=== PATIENT | male | born 1980 | race Caucasian/White ===

== ENCOUNTER → 2017-11-21 09:41 | Outpatient (CLI) | payer BC, SELFPAY ==
--- NOTE | 2017-11-21 09:44 | ECHOD_ITS ---
Reason For Study: Afib Procedure This was a 2D Doppler, Color Flow transthoracic echocardiogram. The study was technically difficult. Contrast injection was performed. Exam performed in department. Left Ventricle Normal LV size. Left ventricular systolic function is lower limits of normal. The estimated ejection fraction is 50 %. No evidence for diastolic dysfunction. No regional wall motion abnormalities noted. Right Ventricle Normal RV size. Normal systolic function. Atria The left atrium is mildly enlarged. Normal right atrium. No doppler evidence for ASD. Mitral Valve There is no mitral annular calcification. Normal mitral valve. Trivial mitral valve insufficiency. Tricuspid Valve Normal tricuspid valve. Trivial tricuspid valve insufficiency. Unable to estimate RV systolic pressure/pulmonary artery pressure due to technically difficult study. Aortic Valve Trisinus/trileaflet aortic valve. Mild focal aortic valve thickening. Pulmonic Valve The pulmonic valve is not well visualized. Trivial eccentric pulmonic valve insufficiency. Great Vessels Normal sized aortic root. Pericardium/Pleural No pericardial effusion. Medication 22 gauge I.V. with prn adaptor inserted into right arm. Diluted definity 4ml given slow IV push to enhance endocardial definition. MMode/2D Measurements & Calculations LVIDd: 5.1 cm IVSd: 1.0 cm Ao root diam: 3.1 cm LVIDs: 3.6 cm LVPWd: 1.1 cm LA dimension: 4.3 cm FS: 30.3 % LAV(MOD-sp4): 44.3 ml LA A4 area: 18.0 cm2 Time Measurements MV dec time: 0.24 sec Doppler Measurements & Calculations MV E max devaughn: 97.4 cm/sec Lat Peak E' Devaughn: 14.6 cm/sec Med Peak E' Devaughn: 13.8 cm/sec MV A max devaughn: 71.0 cm/sec E/E' lat: 6.7 E/E' med: 7.1 MV E/A: 1.4 MV V2 max: 117.5 cm/sec MV P1/2t max devaughn: 118.5 cm/sec Ao V2 max: 131.9 cm/sec MV max P.5 mmHg MV P1/2t: 84.1 msec Ao max P.0 mmHg MV V2 mean: 46.3 cm/sec MV dec slope: 412.6 cm/sec2 Ao V2 mean: 73.0 cm/sec MV mean P.2 mmHg MVA(P1/2t): 2.6 cm2 Ao mean P.6 mmHg MV V2 VTI: 42.2 cm Ao V2 VTI: 25.7 cm LV V1 max: 144.2 cm/sec PA V2 max: 104.0 cm/sec LV V1 max P.3 mmHg LV V1 mean P.9 mmHg LV V1 mean: 76.2 cm/sec LV V1 VTI: 31.0 cm Interpretation Summary The study was technically difficult. Contrast injection was performed. Left ventricular systolic function is lower limits of normal. The estimated ejection fraction is 50 %. The left atrium is mildly enlarged. Trivial mitral valve insufficiency. Trivial tricuspid valve insufficiency. Mild focal aortic valve thickening. Trivial eccentric pulmonic valve insufficiency. No evidence for diastolic dysfunction. Ordering Physician: Kris Diana Referring Physician: Kris Diana Performed By: Jose Eduardo Myers RCS
== END ==
PROVIDERS: Visit Provider Internal Medicine Cardiovascular Disease
DX: I48.0 Paroxysmal atrial fibrillation (principal); I42.9 Cardiomyopathy, unspecified
CPT/HCPCS: 93306; Q9957; A4216; C8929

== ENCOUNTER 2018-07-13 12:18 | Emergency (ER) | payer BC, SELFPAY ==
--- NOTE | 2018-07-13 12:30 | EKG12_ITS ---
Test Reason : CP Blood Pressure : / mmHG Vent. Rate : 054 BPM Atrial Rate : 054 BPM P-R Int : 146 ms QRS Dur : 082 ms QT Int : 430 ms P-R-T Axes : 049 055 054 degrees QTc Int : 407 ms Sinus bradycardia Otherwise normal ECG Confirmed by ELISABETH WELLS, VENUS ([id number]), desk editor MUKUND GARDNER ([id number]) on 07/15/2018 12:40:00 PM Referred By: ENDY Confirmed By:VENUS BARBER MD
--- NOTE | 2018-07-13 12:30 | RAD_ITS ---
STUDY: X-RAY CHEST REASON FOR EXAM: Male, 37 years old. Chest pain TECHNIQUE: Single AP portable view of the chest. COMPARISON: 02/19/2017. FINDINGS: The lungs are clear and expanded. There is no demonstrated pleural abnormality. Normal size heart. Normal mediastinum and ryley. Normal visualized pulmonary arteries. Normal visualized aortic arch and descending thoracic aorta. Normal visualized thoracic spine. Normal visualized ribs, clavicles, and shoulders. There is no demonstrated abnormality of the visualized soft tissue structures of the upper abdomen. RAD/Chest 1 View (Portable) IMPRESSION: Normal x-ray examination of the chest. Electronically Signed: Jeff Nair MD at 14:08 EST , Service support ,
[2018-07-13 12:35] VITALS: PULSE 57; RESP 17; TEMP 36.9; O2SAT 95; O2SAT 98; BMI 35.5
[2018-07-13] MEDS: Aspirin 81 MG TAB.CHEW 324 MG PO (12:42)
[2018-07-13 12:48] LABS: Absolute Lymphocyte Count 2.32 X10^3/ul (0.83-4.51); Absolute Neutrophil Count 4.1 X10^3/uL (2.0-7.7); Basophil# 0.02 X10^3/uL; Basophil% 0.3 % (0-1); Eosinophil# 0.22 X10^3/uL; Eosinophils% 3.1 % (0-5); Hematocrit 40.9 % (40-54); Hemoglobin 14.1 g/dl (13.0-16.5); Lymphocyte # 2.32 X10^3/ul (4.0); Lymphocyte % 32.9 % (19-41); Mean Corp Hgb Conc 34.5 g/gl (32-36); Mean Corpuscular Hgb 30.4 pg (27.0-32.0); Mean Corpuscular Volume 88.1 fL (80-94); Mean Platelet Vol. 9.4 fl (6.2-12.0); Monocyte# 0.37 X10^3/uL; Monocyte% 5.2 % (0-10); Neutrophil # 4.12 X10^3/uL (2.7-7.7); Neutrophil % 58.4 % (47-70); Platelet Count 176 K/mm3 (150-450); RBC Distribution Width CV 12.5 % (11.6-14.6); Red Blood Count 4.64 M/mm3 (4.6-6.2); White Blood Count 7.1 K/mm3 (4.4-11.0)
[2018-07-13 12:50] LABS: POSITIVE COUNT NO; POSITIVE DIFFERENTIAL NO; POSITIVE MORPHOLOGY NO
[2018-07-13 13:03] LABS: Anion Gap 7 (5-15); BUN 17 mg/dL (7-18); Calcium,Total 8.6 mg/dL (8.5-10.1); Chloride 110 mmol/L (98-107); EST Glomerular Filtration Rate 90 mL/min (>60); Est Glom Filt Rate - Afr Amer 108 mL/min (>60); Estimated Creatinine Clearance 118.73 ml/min; Glucose 129 mg/dL (74-106); Sodium Level 141 mmol/L (136-145)
--- NOTE | 2018-07-13 13:24 | ED.VISSUMM ---
- ER Visit Summary Date of Service: 07/13/18 Chief Complaint: Chest pain History of Present Illness: The patient is a 37 M who presents with chest pain. He has had this pain intermittently for 4 days. It sharp in the left lower chest area. Nothing makes it better or worse. He has no other associated symptoms. He has a history of atrial fibrillation. He is on metoprolol and lisinopril at home. He took himself off of Eliquis because he could not afford it. However he believes he has been in a sinus rhythm since that time. His last stress test was 2 years ago. Physical Examination: Vital signs reviewed. HEENT exam unremarkable. Heart is regular rate and rhythm without murmurs. Lungs are clear to auscultation. Abdomen is soft and nontender. Extremities reveal no edema. Peripheral pulses are equal. Skin exam normal. Neurologic exam normal. Test Results: EKG is sinus rhythm with no ST changes. Laboratory studies are unremarkable. Chest x-ray per my interpretation is unremarkable Emergency Department Course and Treatment: Patient received aspirin. His pain is been intermittent for 4 days. I do not feel it is cardiac in nature. The patient recently had twins born earlier this week and he has been under a lot of stress. I educated him that he should relax try to destress as much as possible. He will follow-up with his cement side laster Treatment Plan: [] Disposition: Discharge Impression: Chest pain This note was generated with [employer] dictation software. It may contain incorrect words, spelling, and punctuation that were not noted in review of the chart prior to signing ED Disposition - Plan for ED Patient: Chief Complaint: Chest Pain Referrals: Care Physician,No Primary [Primary Care Provider] -
--- NOTE | 2018-07-13 13:26 | ED.DEP ---
ED Disposition - Plan for ED Patient: Disposition: Home or Assisted Living Chief Complaint: Chest Pain Instructions: ED Chest Pain NonCardiac Referrals: Care Physician,No Primary [Primary Care Provider] -
[2018-07-13 13:36] VITALS: BP 126/63; PULSE 57; RESP 17; O2SAT 97
--- NOTE | 2018-07-13 13:36 | ED.RN ---
IV DC'ED, CATHETER INTACT, SMALL GAUZE DRESSING PLACED. DISCHARGE INSTRUCTIONS GIVEN TO AND REVIEWED WITH PATIENT, PATIENT DENIES QUESTIONS OR CONCERNS AND VOICES UNDERSTANDING OF DISCHARGE INSTRUCTIONS. PT AMBULATES OUT OF ROOM WITHOUT DIFFICULTY.
== END 2018-07-13 13:37 | disposition home or self-care (01) ==
PROVIDERS: Emergency Provider Emergency Medicine
DX: R07.9 Chest pain, unspecified (principal); I48.91 Unspecified atrial fibrillation; I10 Essential (primary) hypertension; Z79.899 Other long term (current) drug therapy
CPT/HCPCS: 71045; 80048; 84484; 85025; 93005; 99285; J7030

== ENCOUNTER 2019-08-27 07:36 | Emergency (ER) | payer BC, SELFPAY ==
[2019-04-18 14:20] VITALS: BMI 36.9
[2019-08-27 07:36] VITALS: BP 126/78; PULSE 49; RESP 18; TEMP 36.4; O2SAT 98; BMI 35.8
--- NOTE | 2019-08-27 07:51 | EKG12_ITS ---
Test Reason : CP Blood Pressure : / mmHG Vent. Rate : 052 BPM Atrial Rate : 052 BPM P-R Int : 150 ms QRS Dur : 080 ms QT Int : 456 ms P-R-T Axes : 053 055 050 degrees QTc Int : 424 ms Sinus bradycardia Otherwise normal ECG Confirmed by ROMAN FRYE ([id number]), proposal editor GENTRY MCCOY ([id number]) on 08/29/2019 1:13:36 PM Referred By: KORY Confirmed By:ROMAN FRYE
--- NOTE | 2019-08-27 07:56 | ED.DCSUM_ITS ---
History of Present Illness Chief Complaint: Chest Pain Informant: Patient Onset: Days - 3 Activity at onset: Unknown Timing: Intermittent, Lasts - Seconds or minutes Quality: Dull Location: Left Chest - Without radiation Current Severity: Gone Maximum Severity: Moderate Worsened By: Movement of Arm, Movement of Torso, Breathing. Not Worsened By: Exertion Relieved By: - - palpation Associated Symptoms: Cough - recently, gone now. Negative for: Nausea, Vomiting, Diaphoresis, Dyspnea Narrative: Patient states this past week or so, everyone in his household had influenza. 1 of his kids tested positive for it but the whole house was ill with that including him along with fevers. He was coughing. It has been 4 days or so since he has been feeling better without coughing, but he started having these intermittent chest pains afterwards. They are left-sided, without radiation, and relatively brief. Occasionally they occur at rest. When he has the pains, he feels like it is worse when he moves his arms or torso around and feels bet ter when he pushes on it. He denies any nausea, vomiting, dyspnea, palpitations. No leg pain or swelling. No recent travel, hospitalization, or surgery. No history of DVT or PE. He has a history of paroxysmal atrial fibrillation for which he is on metoprolol and takes baby aspirin daily. He can tell when he goes into atrial fibrillation because it feels like air in my chest and I can feel my heart beating irregularly. He has had none of those symptoms and this is something different. He had a negative cardiac stress test 2 years ago. - Past Medical History (1) HTN (hypertension) Status: Chronic (2) Paroxysmal atrial fibrillation Status: Chronic (3) Cardiomyopathy Status: Resolved Past Medical History - Allergies and Home Meds Allergies/Adverse Reactions: Allergies No Known Allergies Allergy (Verified 04/18/19 14:20) Primary Care Physician: Doctor,Your [STAFF PHYSICIAN] - 1 Week if not improving Lives: With Family Smoking Status: Former smoker - x2 yrs - Family History Paternal Family History: Reports: No pertinent history Review of Systems General: Denies: Chills, Fever, Sweats Eyes: Denies: Visual changes - bilaterally, Diplopia ENT: Denies: Rhinorrhea, Sore throat Cardiovascular: Reports: Chest pain. Denies: Palpitations Respiratory: Denies: Dyspnea, Cough, Sputum, Dyspnea on exertion, Orthopnea Gastrointestinal: Denies: Abdominal pain, Nausea, Vomiting, Diarrhea, Melena, Hematochezia Genitourinary: Denies: Dysuria, Hematuria, Frequency Musculoskeletal: Denies: Back pain, Swelling, Extremity Pain Skin: Denies: Rash, Wounds Neurological: Denies: Headache, Weakness, Numbness Physical Exam Vital Signs/Narrative: Vital Signs Temp Pulse Resp BP Pulse Ox 08/27/19 07:36 97.6 F L 49 L 18 126/78 H 98 Inital Vital Signs reviewed: Yes General: Well nourished, Well developed, No Acute Distress Head: Normocephalic, Atraumatic Eyes: Perrl, EOMI ENT: Moist mucous membranes, No rhinorrhea Neck: Supple, Nontender, No JVD Cardiovascular: Regular rate, Regular rhythm, No murmurs, Normal S1, Normal S2. Negative for: Tachycardia Respiratory: No distress, CTA bilaterally, Chest nontender Abdomen: Soft, Nontender, Nondistended, Normal bowel sounds Back: Nontender, Normal Inspection Extremities: Nontender, No edema. Negative for: Calf Tenderness Skin: Normal color, No rash Neurological: Alert, Oriented x3, Cranial nerves II-XII grossly intact, Normal Strength, Normal Sensation, Normal Gait Psychological: Normal affect, Normal Mood Diagnostic/Tx/Re-eval Chest X-Ray - ED: 2 View, Read by ED Physician, Normal, Heart, Lungs, Mediastinum, Bony Structures, No Acute Disease - Rhythm Strip Rhythm Strip: Sinus Rhythm Rate: 52 Ectopy: None - EKG Initial EKG Interpretation: Sinus Rhythm, No Acute Injury Pattern - Normal EKG Prior: Unchanged - 2017 Treatment: - - Naprosyn Repeat Eval: no recurrence while in ED - Medical Decision Making Patient's EKG and chest x-ray are normal. I do not think this is cardiac in etiology. I do not think this is a pulmonary embolus given the symptoms. I suspect this is intermittent musculoskeletal pain, there is also a possibility it is pleurisy since he recently had a viral illness. I do not think further emergent work-up is indicated at this time. I think prn NSAIDs and outpatient follow-up is reasonable. Patient is comfortable with this overall plan he was given a Naprosyn prior to discharge. ED Disposition - Plan for ED Patient: Disposition: Home or Assisted Living Diagnosis: Non-cardiac chest pain Instructions: CHEST PAIN, NonCardiac Referrals: Doctor,Your [STAFF PHYSICIAN] - 1 Week if not improving Additional Instructions: May try Aleve or ibuprofen as needed for discomfort
[2019-08-27] MEDS: Naproxen 500 MG Tablet PO (07:58)
--- NOTE | 2019-08-27 08:00 | RAD_ITS ---
STUDY: X-RAY CHEST REASON FOR EXAM: Male, 38 years old. LEFT CHEST PAIN; -- H/O AFIB TECHNIQUE: PA and lateral views of the chest. COMPARISON: Comparison is made with prior examination dated July 10, 2018. FINDINGS: EKG electrodes are seen. Hyperinflation. The lungs are clear. There is no demonstrated pleural abnormality. Normal size heart. Normal mediastinum and ryley. Normal visualized pulmonary arteries. Normal visualized aortic arch and descending thoracic aorta. Normal visualized thoracic spine. Normal visualized ribs, clavicles, and shoulders. There is no demonstrated abnormality of the visualized soft tissue structures of the upper abdomen. RAD/Chest PA and Lateral IMPRESSION: Normal x-ray examination of the chest. Electronically Signed: Kwan Pierce, at 8:35 EST , Service support ,
[2019-08-27 08:40] VITALS: BP 112/58; PULSE 58; RESP 18
== END 2019-08-27 08:40 | disposition home or self-care (01) ==
PROVIDERS: Emergency Provider Emergency Medicine
DX: R07.89 Other chest pain (principal); I48.0 Paroxysmal atrial fibrillation; I42.9 Cardiomyopathy, unspecified; I10 Essential (primary) hypertension; Z79.82 Long term (current) use of aspirin; Z87.891 Personal history of nicotine dependence
CPT/HCPCS: 71046; 93005; 99285; A4216

== ENCOUNTER 2019-12-11 10:05 | Emergency (ER) | payer BC, SELFPAY ==
[2019-12-11] VITALS (11 sets, daily range): BP systolic 96–148; BP diastolic 48–84; PULSE 54–128; RESP 15–20; TEMP 36.1; O2SAT 95–99; BMI 35.9
--- NOTE | 2019-12-11 10:23 | EKG12_ITS ---
Test Reason : Blood Pressure : / mmHG Vent. Rate : 144 BPM Atrial Rate : 159 BPM P-R Int : 000 ms QRS Dur : 076 ms QT Int : 294 ms P-R-T Axes : 000 077 037 degrees QTc Int : 455 ms Atrial fibrillation with rapid ventricular response with premature ventricular or aberrantly conducte d complexes Abnormal ECG Confirmed by ROMAN FRYE ([id number]), editor magazine MUKUND GARDNER ([id number]) on 12/15/2019 11:27:18 AM Referred By: Confirmed By:ROMAN FRYE
--- NOTE | 2019-12-11 10:23 | RAD_ITS ---
STUDY: X-RAY CHEST REASON FOR EXAM: Male, 39 years old. Tachycardia since early this morning TECHNIQUE: Single AP portable view of the chest. COMPARISON: Comparison is made with prior examination dated August 27, 2019. FINDINGS: EKG electrodes are seen. Hyperinflation. The lungs are clear. There is no demonstrated pleural abnormality. Normal size heart. Normal mediastinum and ryley. Normal visualized pulmonary arteries. Normal visualized aortic arch and descending thoracic aorta. Normal visualized thoracic spine. Normal visualized ribs, clavicles, and shoulders. There is no demonstrated abnormality of the visualized soft tissue structures of the upper abdomen. RAD/Chest 1 View (Portable) IMPRESSION: Hyperinflation. Electronically Signed: Kwan Pierce, at 11:13 EDT , Service support ,
[2019-12-11] MEDS: 0.9% Normal Saline 1,000 ML 150 ML IV (10:30)
[2019-12-11] MEDS: dilTIAZem 25 MG/5 ML Vial 20 MG IV BOLUS (10:30)
[2019-12-11 10:31] LABS: Absolute Lymphocyte Count 2.72 X10^3/uL (0.83-4.51); Absolute Neutrophil Count 4.8 X10^3/uL (2.0-7.7); Basophil# 0.05 X10^3/uL; Basophil% 0.6 % (0-1); Eosinophil# 0.26 X10^3/uL; Eosinophils% 3.1 % (0-5); Hematocrit 46.2 % (40-54); Hemoglobin 15.6 g/dL (13.0-16.5); Lymphocyte # 2.72 X10^3/ul (4.0); Lymphocyte % 32.2 % (19-41); Mean Corp Hgb Conc 33.8 g/dL (32-36); Mean Corpuscular Hgb 30.5 pg (27.0-32.0); Mean Corpuscular Volume 90.2 fL (80-94); Mean Platelet Vol. 9.3 fl (6.2-12.0); Monocyte# 0.56 X10^3/uL; Monocyte% 6.6 % (0-10); NRBC Flagged by Analyzer 0 % (0-5); Neutrophil # 4.82 X10^3/uL (2.7-7.7); Neutrophil % 57.1 % (47-70); Platelet Count 230 K/mm3 (150-450); RBC Distribution Width CV 12.1 % (11.6-14.6); RBC Distribution Width SD 39.6 fl (35.1-43.9); Red Blood Count 5.12 M/mm3 (4.6-6.2); White Blood Count 8.4 K/mm3 (4.4-11.0)
[2019-12-11 10:47] LABS: Anion Gap 4 (5-15); BUN 21 mg/dL (7-18); BUN/Creat Ratio 18.1 RATIO (10-20); Calcium,Total 9.4 mg/dL (8.5-10.1); Chloride 110 mmol/L (98-107); Creatinine, Serum 1.16 mg/dL (0.70-1.30); EST Glomerular Filtration Rate 75 mL/min (>60); Est Glom Filt Rate - Afr Amer 91 mL/min (>60); Glucose 102 mg/dL (74-106); Potassium 4.4 mmol/L (3.5-5.1); Sodium Level 140 mmol/L (136-145)
[2019-12-11] MEDS: Rivaroxaban 20 MG Tablet PO (12:06)
--- NOTE | 2019-12-11 13:17 | ED.DCSUM_ITS ---
- ER Visit Summary Date of Service: 12/11/19 Chief Complaint: [Palpitations ] History of Present Illness: The patient is a 39 M [presents to the emergency department with palpitations that he noted around 2 AM last night. Patient states his young daughter woke him up crying and he noted that his heart was skipping beats. Patient has history of atrial fibrillation. His last episode was about 3 years ago and he did receive a cardioversion at that time. Patient is currently not anticoagulated. He denies any recent illness. He denies any chest pain. He denies any shortness of breath. Patient not anticoagulated currently. Patient felt normal prior to going to bed. Patient has history of hypertension and A. fib.] Physical Examination: [HEENT-PERRLA, EOMI. Cranial nerves II through XII grossly intact. TMs clear. Mucous membranes moist. No adenopathy. Cardiovascular-irregularly irregular and tachycardic with heart rate in the 140s. No murmurs auscultated. Lungs-clear to auscultation, chest wall stable without crepitus or subcu emphysema Abdomen-normoactive bowel sounds, soft, nontender, no rebound or rigidity, no peritoneal signs. Extremities-intact ?4, normal range of motion, normal pulses, atraumatic] Test Results: [CBC with differential obtained was normal. Chemistries unremarkable. Troponin was less than 0.015. Chest x-ray showed hyperinflation.] EKG obtained showed atrial fibrillation with rapid ventricular response with a rate of 144. Emergency Department Course and Treatment: [IV line established on arrival. Patient placed on clerical clerk.] Treatment Plan: [Patient initially given Cardizem 20 mg IV bolus and this slowed his heart rate down to the upper 90s. Case was discussed with patient's commercial construction project manager Dr. Kris Diana who recommended given patient 1 dose of Xarelto 20 mg p.o. and waiting an hour and then cardioverting the patient. Patient was consented for cardioversion. Patient was given propofol 140 mg IV. Using 200 J he was cardioverted with synchronized shock. Patient back into sinus rhythm. Patient will be treated with Xarelto for 1 month at the request of his commercial construction project manager.] Disposition: [Discharged home in stable condition] Impression: [Atrial fibrillation with rapid ventricular response Cardioversion] This note was generated with ONOFFMIX (?)ation software. It may contain incorrect words, spelling, and punctuation that were not noted in review of the chart prior to signing ED Disposition - Plan for ED Patient: Referrals: Care Physician,No Primary [Primary Care Provider] -
--- NOTE | 2019-12-11 13:21 | ED.DEP ---
ED Disposition - Plan for ED Patient: Instructions: ED AFIB Prescriptions: Rivaroxaban [Xarelto] 20 mg PO DAILY #30 tab Transmission Status: Pending to [facility] Referrals: Care Physician,No Primary [Primary Care Provider] - Kris Diana MD [STAFF PHYSICIAN] - 3-5 Days
[2019-12-11] MEDS: Propofol 200 MG/20 ML Vial IV BOLUS (13:31)
--- OUTSIDE RECORDS SUMMARY | 2020-04-27 18:30 | XMS RPT_ITS | CCD ---
:1980 External Reference #:[id number] Author Organization [facility] Care Team Providers Name Role Phone Cher Cota Unavailable Unavailable Renny Franco Unavailable Unavailable Renny Franco Unavailable Unavailable Hailee Diana MD Unavailable Renny Franco Unavailable Unavailable Yue RN, L Unavailable Raul IQBAL Unavailable Unavailable Allergies Reported Allergen Reaction(s) Severity Date of Onset Location Cat Translations: [ AOF 12-04-2016 - Kacie esparza [facility] CATS] [facility] Medications Medication Name Sig Date Prescriber Location apixaban ELIQUIS 5 MG TABS One 12-13-2016 Brina Clarke RN [facility] tablet by mouth twice Group ([id number]) daily APIXABAN [id number] Kris Diana MD levocetirizine LEVOCETIRIZINE 12-14-2016 [facility] DIHYDROCHLORIDE 5 MG Group ( [id number]) TABS One tablet by mouth daily LEVOCETIRIZINE DIHYDROCHLORIDE [id number] Kris Diana MD lisinopril LISINOPRIL 5 MG TABS 12-13-2016 Mikala Turner [facility] One tablet by mouth RN Group ([id number]) daily LISINOPRIL [id number] Kris Diana MD metoprolol METOPROLOL TARTRATE 25 12-13-2016 [facility] TABS One tablet by RN Group ([id number]) mouth twice daily METOPROLOL TARTRATE [id number] Kris Diana MD nicotine NICODERM CQ 21 MG/24HR 12-13-2016 - [facility] PT24 Apply once a day 12-14-2016 Group ([id number]) for a week NICOTINE [id number] Mikala Turner RN NICODERM CQ 21 MG/24HR PT24 12-13-[address] [facility] ([id number]) Apply once a day for a week NICOTINE [id number] Mikala Turner RN NICODERM CQ 21 MG/24HR PT24 12-13-2016 - 12-14-2016 [facility] ([id number]) Apply once a day for a week NICOTINE [id number] Kris Diana MD NICODERM CQ 21 MG/24HR PT24 12-13-2016 - 12-14-2016 [facility] ([id number]) Apply once a day for a week NICOTINE [id number] Kris Diana MD NICODERM CQ 21 MG/24HR PT24 12-13-[address] [facility] ([id number]) Apply once a day for a week NICOTINE [id number] Mikala Turner RN NICODERM CQ 21 MG/24HR PT24 12-13-[address] [facility] ([id number]) Apply once a day for a week NICOTINE [id number] Mikala Turner RN NICODERM CQ 21 MG/24HR PT24 12-13-2016 - 12-14-2016 [facility] ([id number]) Apply once a day for a week NICOTINE [id number] Kris Diana MD NICODERM CQ 21 MG/24HR PT24 12-13-2016 - 12-14-2016 [facility] ([id number]) Apply once a day for a week NICOTINE [id number] Kris Diana MD NICODERM CQ 21 MG/24HR PT24 12-13-[address] [facility] ([id number]) Apply once a day for a week NICOTINE [id number] Mikala Turner RN NICODERM CQ 21 MG/24HR PT24 12-13-[address] [facility] ([id number]) Apply once a day for a week NICOTINE [id number] Mikala Turner RN NICODERM CQ 21 MG/24HR PT24 12-13-2016 - 12-14-2016 [facility] ([id number]) Apply once a day for a week NICOTINE [id number] Kris Diana MD NICODERM CQ 21 MG/24HR PT24 12-13-[address] [facility] (49663) Apply once a day for a week NICOTINE [id number] Mikala Turner RN NICODERM CQ 21 MG/24HR PT24 12-13-[address] [facility] ([id number]) Apply once a day for a week NICOTINE [id number] Mikala Turner RN NICODERM CQ 21 MG/24HR PT24 12-13-[address] [facility] ([id number]) Apply once a day for a week NICOTINE [id number] Mikala Turner RN NICODERM CQ 21 MG/24HR PT24 12-13-[address] [facility] (14204) Apply once a day for a week NICOTINE [id number] Mikala Turner RN Problems Category Problem Name Status Date Location Cardiac dysrhythmias Atrial fibrillation Active 12-13-2016 - [facility] ([id number]) Other nutritional; Body mass index (BMI) Active 12-14-2016 - [facility] endocrine; and metabolic 35.0-35.9, adult Group (79496) disorders Lynda-; endo-; and Cardiomyopathy Active 12-13-2016 - [facility] myocarditis; Group ([id number]) cardiomyopathy Unclassified Unknown / UNK(Unknown) Active 07-25-2017 - [place] (0000 0) Unclassified Body mass index (BMI) Active 12-14-2016 - [facility] 34.0-34.9, adult Group ([id number]) Results Result Name Value Range Unit Interpretation Flag Date Location progress on 2017-07 PROGRESS HNO ID: [id number]: Zen jacome 07-25-2017 [facility] Rosario: (none)Author Type: Ruby ([id number]) PhysicianType: Progress NotesFiled: 07/25/2017 12:55 PMNote Text:Chief ComplaintPatient presents with:Fever: cough, SOB x 5 daysHPIMac Elbert is a 36 year old male who presents here today for Evaluation ofURI symptoms..patient with 5 day Hx of cough occasionally productive but most the timedry (symptoms started 07/21/2017). Cough worse in Am and before bed. TempMonday was 103.7 and up to 102 yesterday. No ear pain. Slight headachewith prolonged cough. Has post nasal drainage. No sore throat. Nofascial or dental pain. No nausea vomiting or diarrhea. Has felt shortof breath and was wheezing some Sunday night. No rash.Had asthma as a child but no issues in quit some time.Past medical history, appointments, medications, allergies reviewed.Previous Medical HistoryPAST MEDICAL HISTORYDiagnosis Date- Atrial fibrillation (HCC)Previous Surgical HistoryPAST SURGICAL HISTORYProcedure Laterality Date- NONEFamily HistoryFAMILY HISTORYProblem Relation Age of Onset- Kidney Disease Brother congeintal kidney disease dialysysPatient AllergiesALLERGIESAllergen Reactions- Cats SwellingCurrent MedicationsCurrent Outpatient Prescriptions on File Prior to Visit:metoprolol tartrate, short acting, (LOPRESSOR) 25 mg tablet 25 mg twicedaily.lisinopril (ZESTRIL, PRINIVIL) 5 mg tablet 5 mg once daily.ELIQUIS 5 mg tab tab(s) 5 mg twice daily.Levocetirizine 5 mg tablet Take 5 mg by mouth once daily.No current facility-administered medications on file prior to visit.Social HistorySocial History Marital status: Spouse name: Years of education: Number of children:Social History Main Topics Smoking status: Current Every Day Smoker Packs/day: 1.50 Years: 20.00 Smokeless status: Never Used Alcohol use: Yes 30.0 oz/week 20 Cans of Beer (12oz) per week Drug use: NoReview of SymptomsREVIEW OF [facility] HPIEXAM:BP 116/78 (BP Site: Right Arm, BP Position: Sitting, BP Cuff Size: LargeAdult) Pulse 62 Temp 36.9 ?C (98.5 ?F) (Tympanic) Resp 14 Ht 188cm (6' 2) Wt 124.3 kg (274 lb) SpO2 96% BMI 35.18 kg/t1Xuhzaqn Appearance: Well appearing, alert, in no acute distress,well-hydrated, well nourished..Eyes: Anicteric sclera. Pupils are equally round and reactive to light.Extraocular movements are intact. .Ears: External ears normal, canals clear.Nose/Sinuses: Positive findings: mucosa erythematous and swollen, clearrhinorrhea.Oropharynx: Lips, mucosa, and tongue normal, teeth and gums normal,oropharynx with mild cobble stoningNeck: Supple, no adenopathy; thyroid symmetric, normal size, no bruits.Lungs: Lungs clear to auscultation. No wheezing, rhonchi, rales.Heart: RRR without murmur, gallop, or rubs. No ectopy.Abdomen: Normal abdominal exam, Abdomen soft, non-tender. Bowel soundsnormal. No masses, organomegaly.Extremities: No deformities, edema,Health Maintenance ListTETANUS due on 1992ONE PNEUMOVAX PRIOR TO AGE 65 due on 2000LIPID SCREEN due on 2016INFLUENZA(1) due on 03/16/2017Data reviewedA/PASSESSMENT/PLAN:1. Walking pneumonia - ICD9: 486, ICD10: J18.9 (primary diagnosis)- Treat with AZITHROMYCIN 500 MG TABLET daily for 10 days2. Cough - ICD9: 786.2, ICD10: R05- BENZONATATE 100 MG CAPSULE up to TID for coughAdvised on use of tylenol or advil for fever and body aches. Advised toincrease fluids.Work note provided for excuse from work from 07/23/2017 through 07/27/1027with RTW 07/30/2017.Signed Prescriptions Disp Refills benzonatate (TESSALON PERLE) 100 mg capsule 30 capsule 3 Sig: Take 1 capsule by mouth three times daily as needed. azithromycin (ZITHROMAX) 500 mg tablet 10 tablet 0 Sig: Take 1 tablet by mouth once daily for 10 days.F/u MD fly Silver on 2017-07-25 CNOV Office Visit Normal 07-25-2017 [facility] --------KHOI CRAIN [facility] ([id number]) 1980 MDate Time Provider Department07/25/17 11:20 AM ZEN IQBAL Ruby During your visit today, we recorded the following information about you: Temperature Pulse (16108) Respiration Blood pressure 9 8.5 degrees 62/minute 14/minute 116/78 Weight Height 124.3 kg 1.88 Moody Iqbal MD 8 12:55 PM SignedChief ComplaintPatient presents with:Fever: cough, SOB x 5 daysHPIMac Elbert is a [age] year old male who presents here today for Evaluation of URIsymptoms..patient with 5 day Hx of cough occasionally productive but most the time dry(symptoms started 07/21/2017). Cough wor se in Am and before bed. Temp Sundaywas 103.7 and up to 102 yesterday. No ear pain. Slight headache withprolonged cough. Has post nasal drainage. No sore throat. No fascial ordental pain. No na usea vomiting or diarrhea. Has felt short of breath and waswheezing some Sunday night. No rash.H ad asthma as a child but no issues in quit some time.Past medical history, appointments, medic ations, allergies reviewed.Previous Medical HistoryPAST MEDICAL HISTORYDiagnosis Date- Atria l fibrillation (HCC)Previous Surgical HistoryPAST SURGICAL HISTORYProcedure Laterality Date- NONEFamily HistoryFAMILY HISTORYProblem Relation Age of Onset- Kidney Disease Brother conge intal kidney disease dialysysPatient AllergiesALLERGIESAllergen Reactions- Cats SwellingCurr ent MedicationsCurrent Outpatient Prescriptions on File Prior to Visit:metoprolol tartrate, s hort acting, (LOPRESSOR) 25 mg tablet 25 mg twice daily.lisinopril (ZESTRIL, PRINIVIL) 5 mg tab let 5 mg once daily.ELIQUIS 5 mg tab tab(s) 5 mg twice daily.Levocetirizine 5 mg ta blet Take 5 mg by mouth once daily.No current facility-administered medications on file prior to visit.Social HistorySocial History Marital status: Spouse name: Years of education: Lacie mber of children:Social History Main Topics Smoking status: Current Every Day Smoker Packs/day: 1.50 Years: 20.00 Smokeless status: Never Used Alcohol use: Yes 30.0 oz/week 20 Cans of Beer (12o z) per week Drug use: NoReview of SymptomsREVIEW OF [facility] HPIEXAM:BP 116/78 (BP Site: Right Arm, BP Position: Sitting, BP Cuff Size: Large Adult) Pulse 62 Temp 36.9 ?C (98.5 ?F) (Tymp anic) Resp 14 Ht 188 cm (6'2ANDquot;) Wt 124.3 kg (274 lb) SpO2 96% BMI 35.18 kg/h2Igargzb Appearance: Well appearing, alert, in no acute distress, well-hydrated,well nourished ..Eyes: Anicteric sclera. Pupils are equally round and reactive to light.Extraocular movements are intact. .Ears: External ears normal, canals clear.Nose/Sinuses: Positive findings: mucosa er ythematous and swollen, clearrhinorrhea.Oropharynx: Lips, mucosa, and tongue normal, teeth and gum s normal, oropharynxwith mild cobble stoningNeck: Supple, no adenopathy; thyroid symmetri c, normal size, no bruits.Lungs: Lungs clear to auscultation. No wheezing, rhonchi, rales.Hea rt: RRR without murmur, gallop, or rubs. No ectopy.Abdomen: Normal abdominal exam, Abdomen soft , non-tender. Bowel sounds normal.No masses, organomegaly.Extremities: No deformities, edema,Health Maintenance ListTETANUS due on 1992ONE PNEUMOVAX PRIOR TO AGE 65 due on 2000LIPID SCREE N due on 2016INFLUENZA(1) due on 03/16/2017Data reviewedA/PASSESSMENT/PLAN:1 . Walking pneumonia - ICD9: 486, ICD10: J18.9 (primary diagnosis)- Treat with AZITHROMYCIN 500 MG TABLET daily for 10 days2. Cough - ICD9: 786.2, ICD10: R05- BENZONATATE 100 MG CAPSULE u p to TID for coughAdvised on use of tylenol or advil for fever and body aches. Advised toincrease fl uids.Work note provided for excuse from work from 07/23/2017 through 07/27/1027 withRTW 07/30/2017. Signed Prescriptions Disp Refills benzonatate (TESSALON PERLE) 100 mg capsule 30 capsule 3 Sig: Ta ke 1 capsule by mouth three times daily as needed. azithromycin (ZITHROMAX) 500 mg tablet 10 tablet 0 Sig: Take 1 tablet by mouth once daily for 10 days.F/u Celine Silver Provider: SELF [200]Allergies As of Date: 07/25/2017 Noted Allergy ReactionCATS 12/04/2016 7 - SwellingDate Reviewed: 07/25/2017Reviewed by: Zen Iqbal - Fully AssessedReason for Visit: raya [47] Cmt: cough, SOB x 5 daysPrimary Visit Diagnosis:Walking pneumonia [J18.9] Other Visi t Diagnosis:Cough [R05]Order(s):benzonatate (TESSALON PERLE) 100 mg capsuleTake 1 capsule by alanna three times daily as needed.Disp: 30 capsuleRfl: 3 azithromycin (ZITHROMAX) 500 mg tabletTak e 1 tablet by mouth once daily for 10 days.Disp: 10 tabletRfl: 0Prescriptions as of 018 Sig: METOPROLOL TARTRATE 25 MG TAB* 25 mg twice daily. LISINOPRIL 5 MG TABLET 5 mg once daily. E LIQUIS 5 MG TABLET 5 mg twice daily. LEVOCETIRIZINE 5 MG TABLET Take 5 mg by mouth once daily. PATRICK ONATATE 100 MG CAPSULE Take 1 capsule by mouth three* AZITHROMYCIN 500 MG TABLET Take 1 tablet by m out once d*Problem List As Of Date 07/25/2017 Noted Resolved Obesity due to excess calories [E66. 09] INVALID FOR* Acute systolic congestive heart failure (HCC) [*INVALID FOR* More... New o nset atrial fibrillation (HCC) [I48.91] INVALID FOR* Excessive drinking alcohol [F10.10] INVALID FOR *Prescriptions ordered this encounter Disp Refills Start End BENZONATATE 100 MG CAPSULE 3 0 c* 3 07/25/2017 Route: ORAL Sig: Take 1 capsule by mouth three times daily as needed. AZITHROMYCI N 500 MG TABLET 10 t* 0 07/25/2017 08/04/2017 Cmt: Treating walking pneumonia and biaxin interac ts with his eliquis Route: ORAL Sig: Take 1 tablet by mouth once daily for 10 days.Disposition: Ret urn if symptoms worsen or fail to improve.Follow-up and Disposition History RecordedLetter TextJ anuary 2017TO WHOM IT MAY CONCERN:This is to certify that Mr. Dinh has been under my car e for pneumoniaand was unable to work from 07/23/2017 through 07/27/2017.Mr. Crain may ret urn to work on 07/30/2017 without restrictions.Sincerely yours,Zen Iqbal MDEncounter Number: [id number] Status:Closed by ZEN IQBAL on 07/25/17 replaced document: [facility] [place] ecg observati ons on 2017-03-20 electrocardiogram Sinus Invalid 03-20-2017 - [place] interpretation Bradycardia Interpretation 03-20-20 17 Heart WITHIN NORMAL Code Group LIMITS ([id number]) GE use only - for 429 ms Invalid 03-20-2017 - [facility] import when Interpretation Heart terms are not Code Group otherwise specified ([id number]) P wave axis, 39 deg Invalid 03-20-2017 - [facility]ogram Interpretation 017 [facility] Code Group ([id number]) NJ interval, 152 ms Invalid 03-20-2017 - [facility] Interpretation 017 [facility] Code Group ([id number]) Pulse (Heart Rate) 59 BPM /min Invalid 03-20-2017 - [place] Interpretation 03-20-2017 Hear t Code Group ([id number]) QRS axis, 67 deg Invalid 03-20-2017 - [place] electrocardiogram Interpretation 017 [facility] Code Group ([id number]) QRS duration, 88 ms Invalid 03-20-2017 - [facility] electrocardiogram Interpretation 017 [facility] Code Group (09436) QT interval, new path ms Invalid 03-20-2017 - [facility] Interpretation [facility] Code [facility] (43635) T wave axis, 59 deg Invalid 03-20-2017 - [facility]ogram Interpretation 017 [facility] Code Group (90778) office visit: alix winston 2017-03-20 Dietary management yes Invalid Interpretatio n 03-20-2017 - [facility] education, guidance, Code 7 Group ([id number]) and counseling (procedure) Documentation of Done Invalid Interpretation 03-20-2017 - [facility] current medications Code 03-20-2017 Group ([id number]) (procedure) Fall risk assessment No Invalid Interpretat ion 03-20-2017 - [facility] Code 03-20-2017 Group (44 1) replaced document: [facility] ecg observati ons on 2016-12-14 EKG QRS axis 41 deg Invalid 12-14-2016 - [facility] Interpretation 12-14-2016 Hear t Code Group ([id number]) electrocardiogram Sinus Invalid 12-14-2016 - [facility] Bradycardia Interpretation 12-15-19 17 Heart WITHIN NORMAL Code Group LIMITS ([id number]) GE use only - for 428 ms Invalid 12-14-2016 - [facility] [employer] import when Interpretation Heart terms are not Code Group otherwise specified (59881) Interpretation Sinus Invalid 12-14-2016 - [facility] Bradycardia Interpretation 12-14-2016 He art WITHIN NORMAL Code Group LIMITS ([id number]) P [place] 45 deg Invalid 12-14-2016 - [facility] Interpretation 12-14-2016 Hear t Code Group ([id number]) P wave axis, 45 deg Invalid 12-14-2016 - [facility] electro[facility]ogram Interpretation 017 [facility] Code Group (08370) NJ Interval 148 ms Invalid 12-14-2016 - [place] Interpretation 12-14-2016 [facility] t Code Group (25253) NJ interval, 148 ms Invalid 12-14-2016 - [facility] electro[facility]ogram Interpretation 017 [facility] Code Group (74671) Pulse (Heart Rate) 53 BPM /min Invalid 12-14-2016 - [facility] Interpretation 12-14-2016 Hear t Code Group ([id number]) QRS axis, 41 deg Invalid 12-14-2016 - [place] electrocardiogram Interpretation 017 [facility] Code Group ([id number]) QRS Duration 88 ms Invalid 12-14-2016 - [facility] Interpretation 12-14-2016 Hear t Code Group (90265) QRS duration, 88 ms Invalid 12-14-2016 - [facility] electrocardiogram Interpretation 017 [facility] Code Group (05045) QT Interval new path ms Invalid 12-14-2016 - [facility] Interpretation 12-14-2016 Hear t Code Group ([id number]) QT interval, new path ms Invalid 12-14-2016 - [facility] Interpretation [facility] Code Group ([id number]) QTc T[place] 428 ms Invalid 12-14-2016 - [facility] Interpretation 12-14-2016 Hear t Code Group ([id number]) T [place] 46 deg Invalid 12-14-2016 - [facility] Interpretation 12-14-2016 Hear t Code Group ([id number]) T wave axis, 46 deg Invalid 12-14-2016 - [facility] Interpretation 017 [facility] Code Group (90773) office visit on 01-18-01 Dietary management yes Invalid Interpretatio n 12-14-2016 - [facility] education, guidance, Code 7 Group ([id number]) and counseling (procedure) Documentation of Done Invalid Interpretation 12-14-2016 - [facility] current medications Code 12-14-2016 Group ([id number]) (procedure) external other: preferred method of cont act on 2016-12-14 methcontact secmsg Invalid Interpretation 12-14 - [facility] Code 12-14-2016 Group (44 891) Patient's prefered secmsg Invalid Interpretatio n 12-14-2016 - [facility] method of contact Code 12-14-2016 Meghann martinez ([id number]) clinical lists update: preload on 2016-12-13 Left ventricular 45 % Invalid 12-13-2016 - [facility] Ejection fraction Interpretation Code Group ([id number]) Tobacco use CPHS Former smoker Invalid - [facility] Interpretation Code 12-13-2016 Group ([id number]) clinical lists update: preload on 2016-11-15 Alanine 68 U/L Invalid 11-15-2016 - [facility] aminotransferase (ALT) Interpretation Co de 11-15-2016 Group ([id number]) Alkaline phosphatase 86 U/L Invalid - [facility] (ALP) Interpretation Code 11-15-2016 Group ([id number]) Aspartate 31 U/L Invalid 11-15-2016 - [facility] aminotransferase (AST) Interpretation Co de 11-15-2016 Group ([id number]) Bilirubin (total) 0.50 mg/dL Invalid 11-15-2016 - [facility] Interpretation Code 11-15-2016 Group ([id number]) BUN/Creatinine Ratio 14.2 mg/mg Invalid 7 - [facility] Interpretation Code 11-15-2016 Group ([id number]) Calcium 8.5 mg/dL Invalid 11-15-2016 - [facility] Interpretation Code 11-15-2016 Group ([id number]) Chloride 108 mmol/L Invalid 11-15-2016 - [facility] Interpretation Code 11-15-2016 Group ([id number]) Cholesterol 149 mg/dL Invalid 11-15-2016 - [facility] Interpretation Code 11-15-2016 Group ([id number]) CO2 24.0 mmol/L Invalid 11-15-2016 - [facility] Interpretation Code 11-15-2016 Group ([id number]) Creatinine 0.98 mg/dL Invalid 11-15-2016 - [facility] Interpretation Code 11-15-2016 Group ([id number]) Glucose 91 mg/dL Invalid 11-15-2016 - [facility] Interpretation Code 11-15-2016 Group ([id number]) Glucose mass conc 91 mg/dL Invalid 11-15-2016 - [facility] Interpretation Code 11-15-2016 Group ([id number]) HDL Cholesterol 57 mg/dL Invalid 11-15-2016 - [facility] Interpretation Code 11-15-2016 Group (30264) LDL Cholesterol 72 mg/dL Invalid 11-15-2016 - [facility] Interpretation Code 11-15-2016 Group (57014) Magnesium 1.9 mg/dL Invalid 11-15-2016 - [facility] Interpretation Code 11-15-2016 Group ([id number]) Potassium 4.3 mmol/L Invalid 11-15-2016 - [facility] Interpretation Code 11-15-2016 Group ([id number]) Protein 6.9 g/dL Invalid 11-15-2016 - [facility] Interpretation Code 11-15-2016 Group ([id number]) Sodium 141 mmol/L Invalid 11-15-2016 - [facility] Interpretation Code 11-15-2016 Group ([id number]) Triglyceride 101 mg/dL Invalid 11-15-2016 - [facility] Interpretation Code 11-15-2016 Group ([id number]) Urea nitrogen 14 mg/dL Invalid 11-15-2016 - [facility] Interpretation Code 11-15-2016 Group ([id number]) clinical lists update: preload on 2016-11-14 Hematocrit (HCT) 44.0 % Invalid 11-14-2016 - [facility] Interpretation Code 11-14-2016 Group ([id number]) Hemoglobin (HGB) 15.0 g/dL Invalid 11-14-2016 - [facility] Interpretation Code 11-14-2016 Group ([id number]) Platelets 192 10*3/mm3 Invalid 11-14-2016 - [facility] Interpretation Code 11-14-2016 Group ([id number]) WBC (Leukocytes) 8.7 10*9/L Invalid 11-14-2016 - [facility] Interpretation Code 11-14-2016 Group ([id number]) Vital Signs Vital Sign Description Value / Unit Date Location The following section is limited to 5 en tries per type and includes entries from the following time range: 20161214 - 5. BMI (Body Mass Index) 35.73 kg/m2 03-20-2017 - 03-20-2017 [facility] ([id number]) BMI (Body Mass Index) 34.66 kg/m2 12-14-2016 - 12-14-2016 [facility] (77206) BP Diastolic 62 mm[Hg] 03-20-2017 - 03-20-2017 [facility] ([id number]) BP Diastolic 58 mm[Hg] 12-14-2016 - 12-14-2016 [facility] ([id number]) BP Systolic 110 mm[Hg] 03-20-2017 - 03-20-2017 [facility] ([id number]) BP Systolic 110 mm[Hg] 12-14-2016 - 12-14-2016 [facility] ([id number]) Height 187.96 cm 03-20-2017 - 03-20-2017 [facility] (59276) Height 187.96 cm 12-14-2016 - 12-14-2016 [facility] ([id number]) Pulse (Heart Rate) 59 /min 03-20-2017 - 03-20-2017 [facility] (47404) Pulse (Heart Rate) 60 /min 12-14-2016 - 12-14-2016 [facility] ([id number]) Respiratory Rate 18 /min 03-20-2017 - 03-20-2017 [facility] ([id number]) Respiratory Rate 16 /min 12-14-2016 - 12-14-2016 [facility] ([id number]) Weight 126.24 kg 03-20-2017 - 03-20-2017 [facility] (88106) Weight 122.47 kg 12-14-2016 - 12-14-2016 [facility] ([id number]) Encounters Date Type Reason Provider Location 07-25-2017 - 07-25-2017 Ambulatory ZEN Carter FARIDA [facility] ([id number]) Procedures Procedure Name Date Provider Location Electrocardiogram, 03-20-2017 - Harley Walden [facility] complete 03-20-2017 ([id number]) Follow Up Appt 6 months 03-20-2017 - Harley Walden [employer] [facility] 03-20-2017 ([id number]) PFM 03-20-2017 - Harley Walden [facility] 03-20-2017 ([id number]) Electrocardiogram, 12-14-2016 - Kris Diana MD [facility] complete 12-18-2016 ([id number]) Plan of Treatment Plan Description Date Location Appointment Appointment 11-12-2017 - [facility] 11-12-2017 ([id number]) Appointment Appointment 03-20-2017 - [facility] 03-20-2017 ([id number]) Follow Up Appt 6 months Follow Up Appt 6 months 03-20-2017 - [facility] 03-20-2017 ([id number]) PFM PFM 03-20-2017 - [facility] 03-20-2017 ([id number]) Appointment Appointment 03-16-2017 - [facility] 03-16-2017 ([id number]) Appointment Appointment 03-16-2017 - [facility] 03-16-2017 ([id number]) Appointment Appointment 12-14-2016 - [facility] 12-14-2016 ([id number]) EKG (In office) EKG (In office) 12-14-2016 - [facility] 12-15-2016 ([id number]) Echocardiogram (complete) Echocardiogram (complete) 12-14-2016 - [facility] 12-15-2016 ([id number]) Follow Up Appt 3 months Follow Up Appt 3 months 12-14-2016 - [facility] 12-15-2016 ([id number]) MMM MMM 12-14-2016 - [facility] 12-15-2016 ([id number]) Echocardiogram (complete) Echocardiogram (complete) 12-14-2016 - [facility] 02-27-2017 ([id number]) EKG (In office) EKG (In office) 12-14-2016 - [facility] 12-18-2016 ([id number]) Follow Up Appt 3 months Follow Up Appt 3 months 12-14-2016 - [facility] 12-15-2016 ([id number]) MMM MM 12-14-2016 - [facility] 12-15-2016 ([id number]) Summary Purpose Family History No Family History Records Found Advance Directives No Advanced Directives Records Found Additional Source Comments FOR RECORDS PERTAINING TO PATIENTS WHO ARE OR HAVE BEEN ENROLLED IN A CHEMICAL DEPENDENCY/SUBSTANCE ABUSE PROGRAM, SOME INFORMATION MAY BE OMITTED. This clinical summary was aggregated from multiple sources. Caution should be exercised in using it in the provision of clinical care. This summary normalizes information from multiple sources, and as a consequence, information in this document may materially changethe coding, format and clinical context of patient data. In addition, data may be omittedin some cases. CLINICAL DECISIONS SHOULD BE BASED ON THE PRIMARY CLINICAL RECORDS. [facility] provides no warranty or guarantee of the accuracy or completeness of information in this document. UNRECOGNIZED CONTENT PROVIDED BELOW FOR UNRECOGNIZED SECTION No Status Records Found UNRECOGNIZED CONTENT PROVIDED BELOW FOR UNRECOGNIZED SECTION INFORMATION SOURCE DATE CREATED AUTHOR AUTHOR'S ORGANIZATIO N 01/08/2018 [facility]
--- OUTSIDE RECORDS SUMMARY | 2020-04-27 18:33 | XMS RPT_ITS | CCD ---
:1980 External Reference #:[id number] Author Organization [facility] Care Team Providers Name Role Phone Cher Cota Unavailable Unavailable Renny Franco Unavailable Unavailable Renny Franco Unavailable Unavailable Hailee Diana MD Unavailable Renny Franco Unavailable Unavailable Yue RN, L Unavailable Raul IQBAL Unavailable Unavailable Allergies Reported Allergen Reaction(s) Severity Date of Onset Location Cat Translations: [ AOF 12-04-2016 - Kacie esparza [facility] CATS] [facility] Medications Medication Name Sig Date Prescriber Location apixaban ELIQUIS 5 MG TABS One 12-13-2016 Brina Clarke RN [facility] tablet by mouth twice Group ([id number]) daily APIXABAN [id number] Kris Diana MD levocetirizine LEVOCETIRIZINE 12-14-2016 [facility] DIHYDROCHLORIDE 5 MG Group ( [id number]) TABS One tablet by mouth daily LEVOCETIRIZINE DIHYDROCHLORIDE [id number] Kris Diana MD lisinopril LISINOPRIL 5 MG TABS 12-13-2016 Mikala Turner [facility] One tablet by mouth RN Group ([id number]) daily LISINOPRIL [id number] Kris Diana MD metoprolol METOPROLOL TARTRATE 25 12-13-2016 [facility] TABS One tablet by RN Group ([id number]) mouth twice daily METOPROLOL TARTRATE [id number] Kris Diana MD nicotine NICODERM CQ 21 MG/24HR 12-13-2016 - [facility] PT24 Apply once a day 12-14-2016 Group ([id number]) for a week NICOTINE [id number] Mikala Turner RN NICODERM CQ 21 MG/24HR PT24 12-13-[address] [facility] ([id number]) Apply once a day for a week NICOTINE [id number] Mikala Turner RN NICODERM CQ 21 MG/24HR PT24 12-13-2016 - 12-14-2016 [facility] ([id number]) Apply once a day for a week NICOTINE [id number] Kris Diana MD NICODERM CQ 21 MG/24HR PT24 12-13-2016 - 12-14-2016 [facility] ([id number]) Apply once a day for a week NICOTINE [id number] Kris Diana MD NICODERM CQ 21 MG/24HR PT24 12-13-[address] [facility] ([id number]) Apply once a day for a week NICOTINE [id number] Mikala Turner RN NICODERM CQ 21 MG/24HR PT24 12-13-[address] [facility] (45091) Apply once a day for a week NICOTINE [id number] Mikala Turner RN NICODERM CQ 21 MG/24HR PT24 12-13-2016 - 12-14-2016 [facility] ([id number]) Apply once a day for a week NICOTINE [id number] Kris Diana MD NICODERM CQ 21 MG/24HR PT24 12-13-2016 - 12-14-2016 [facility] ([id number]) Apply once a day for a week NICOTINE [id number] Kris Diana MD NICODERM CQ 21 MG/24HR PT24 12-13-[address] [facility] ([id number]) Apply once a day for a week NICOTINE [id number] Mikala Turner RN NICODERM CQ 21 MG/24HR PT24 12-13-[address] [facility] (64974) Apply once a day for a week NICOTINE [id number] Mikala Turner RN NICODERM CQ 21 MG/24HR PT24 12-13-2016 - 12-14-2016 [facility] (12982) Apply once a day for a week NICOTINE [id number] Kris Diana MD NICODERM CQ 21 MG/24HR PT24 12-13-[address] [facility] (44378) Apply once a day for a week NICOTINE [id number] Mikala Turner RN NICODERM CQ 21 MG/24HR PT24 12-13-[address] [facility] (43769) Apply once a day for a week NICOTINE [id number] Mikala Turner RN NICODERM CQ 21 MG/24HR PT24 12-13-[address] [facility] (87389) Apply once a day for a week NICOTINE [id number] Mikala Turner RN NICODERM CQ 21 MG/24HR PT24 12-13-[address] [facility] (74144) Apply once a day for a week NICOTINE [phone] Mikala Turner RN Problems Category Problem Name Status Date Location Cardiac dysrhythmias Atrial fibrillation Active 12-13-2016 - [facility] ([id number]) Other nutritional; Body mass index (BMI) Active 12-14-2016 - [facility] endocrine; and metabolic 35.0-35.9, adult Group ([id number]) disorders Lynda-; endo-; and Cardiomyopathy Active 12-13-2016 - [facility] myocarditis; Group ([id number]) cardiomyopathy Unclassified Unknown / UNK(Unknown) Active 07-25-2017 - [facility] (0000 0) Unclassified Body mass index (BMI) Active 12-14-2016 - [facility] 34.0-34.9, adult Group (4469 1) Results Result Name Value Range Unit Interpretation Flag Date Location progress on 2017-07 PROGRESS HNO ID: [id number]: Zen jacome 07-25-2017 [facility] Rosario: (none)Author Type: [place] ([id number]) PhysicianType: Progress NotesFiled: 07/25/2017 12:55 PMNote Text:Chief [...] week Drug use: NoReview of SymptomsRE[facility] 116/78 (BP Site: Right Arm, BP Position: Sitting, BP Cuff Size: LargeAdult) Pulse 62 Temp 36.9 ?C (98.5 ?F) (Tympanic) Resp 14 Ht 188cm (6' 2) Wt 124.3 kg (274 lb) SpO2 96% BMI 35.18 kg/h6Nptghti Appearance: Well appearing, alert, in no acute [...] CNOV Office Visit Normal 07-25-2017 [facility] --------KHOI CRAIN [facility] ([id number]) 1980 MDate Time Provider Department07/25/17 11:20 AM ZEN IQBAL [place] During your visit today, we recorded the following information about you: Temperature Pulse (51608) Respiration Blood pressure 9 8.5 degrees 62/minute [...] week Drug use: NoReview of SymptomsREVIEW OF [facility]PI[facility]:BP 116/78 (BP Site: Right Arm, BP Position: Sitting, BP Cuff Size: Large Adult) Pulse 62 Temp 36.9 ?C (98.5 ?F) (Tymp anic) Resp 14 Ht 188 cm (6'2ANDquot;) Wt 124.3 kg (274 lb) SpO2 96% BMI 35.18 kg/g9Cjxwehl Appearance: Well appearing, alert, in no acute [...] 07/30/2017 without restrictions.Sincerely yours,Zen Iqbal MDEncounter Number: [id number] Status:Closed by ZEN IQBAL on 07/25/17 replaced document: [facility] ecg observati ons on 2017-03-20 electrocardiogram Sinus Invalid 03-20-2017 - [facility] Bradycardia Interpretation 03-20-20 17 Heart WITHIN NORMAL Code Group LIMITS ([id number]) GE use only - for 429 ms Invalid 03-20-2017 - [facility] import when Interpretation Heart terms are not Code Group otherwise specified (24155) P wave axis, 39 deg Invalid 03-20-2017 - [facility]ogram Interpretation 017 [facility] Code Group (74216) AL interval, 152 ms Invalid 03-20-2017 - [facility] electro[facility] Interpretation 017 [facility] Code Group (65404) Pulse (Heart Rate) 59 BPM /min Invalid 03-20-2017 - [facility] Interpretation 03-20-2017 Hear t Code Group (15601) QRS axis, 67 deg Invalid 03-20-2017 - [facility] electro[facility]ogram Interpretation 017 [facility] Code Group (38630) QRS duration, 88 ms Invalid 03-20-2017 - [facility] electrocardiogram Interpretation 017 [facility] Code Group (90068) QT interval, new path ms Invalid 03-20-2017 - [facility] electro[facility]ogram Interpretation 017 [facility] Code Group (46154) T wave axis, 59 deg Invalid 03-20-2017 - [facility] electro[facility]ogram Interpretation 017 [facility] Code Group (37771) office visit: alix winston 2017-03-20 Dietary management yes Invalid Interpretatio n 03-20-2017 - [facility] education, guidance, Code 7 Group (26805) and counseling (procedure) Documentation of Done Invalid Interpretation 03-20-2017 - [facility] current medications Code 03-20-2017 Group ([id number]) (procedure) Fall risk assessment No Invalid Interpretat ion 03-20-2017 - [facility] Code 03-20-2017 Group (44 421) replaced document: [facility] ecg observati ons on 2016-12-14 EKG QRS axis 41 deg Invalid 12-14-2016 [facility] Interpretation 12-14-2016 Hear t Code Group (78329) electrocardiogram Sinus Invalid 12-14-2016 - [facility] Bradycardia Interpretation 12-15-19 17 Heart WITHIN NORMAL Code Group LIMITS (05635) GE use only - for 428 ms Invalid 12-14-2016 - [facility] [employer] import when Interpretation Heart terms are not Code Group otherwise specified (00552) Interpretation Sinus Invalid 12-14-2016 - [facility] Bradycardia Interpretation 12-14-2016 He art WITHIN NORMAL Code Group LIMITS (01558) P [place] 45 deg Invalid 12-14-2016 - [facility] Interpretation 12-14-2016 [facility] Code Group (95314) P wave axis, 45 deg Invalid 12-14-2016 - [facility] electro[facility]ogram Interpretation 017 [facility] Code Group (02605) AL Interval 148 ms Invalid 12-14-2016 - [facility] Interpretation 12-14-2016 [facility] Code Group (70964) AL interval, 148 ms Invalid 12-14-2016 - [facility] electro[facility]ogram Interpretation 017 [facility] Code Group (81543) Pulse (Heart Rate) 53 BPM /min Invalid 12-14-2016 - [facility] Interpretation 12-14-2016 [facility] (11581) QRS axis, 41 deg Invalid 12-14-2016 - [facility]ogram Interpretation 017 [facility] Code Group (73521) QRS Duration 88 ms Invalid 12-14-2016 - [facility] Interpretation 12-14-2016 Hear t Code Group (39735) QRS duration, 88 ms Invalid 12-14-2016 - [facility] electrocardiogram Interpretation 017 [facility] Code Group (29059) QT Interval new path ms Invalid 12-14-2016 - [facility] Interpretation 12-14-2016 [facility] Code [facility] (40282) QT interval, new path ms Invalid 12-14-2016 - [facility] Interpretation 0[facility] Code Group (51203) QTc T[place] 428 ms Invalid 12-14-2016 - [facility] Interpretation 12-14-2016 [facility] Code [facility] ([id number]) T [place] 46 deg Invalid 12-14-2016 - [facility] Interpretation 12-14-2016 [facility] Code [facility] (22359) T wave axis, 46 deg Invalid 12-14-2016 - [facility] electro[facility]ogram Interpretation 017 [facility] Code Group (42719) office visit on 01-18-01 Dietary management yes Invalid Interpretatio n 12-14-2016 - [facility] education, guidance, Code 7 Group (68118) and counseling (procedure) Documentation of Done Invalid Interpretation 12-14-2016 - [facility] current medications Code 12-14-2016 Group (37824) (procedure) external other: preferred method of cont act on 2016-12-14 methcontact secmsg Invalid Interpretation 12-14 - [facility] Code 12-14-2016 Group (44 931) Patient's prefered secmsg Invalid Interpretatio n 12-14-2016 - [facility] method of contact Code 12-14-2016 Meghann martinez ([id number]) clinical lists update: preload on 2016-12-13 Left ventricular 45 % Invalid 12-13-2016 - [facility] Ejection fraction Interpretation Code Group (91515) Tobacco use CPHS Former smoker Invalid - [facility] Interpretation Code 12-13-2016 Group (71542) clinical lists update: preload on 2016-11-15 Alanine 68 U/L Invalid 11-15-2016 - [facility] aminotransferase (ALT) Interpretation Co de 11-15-2016 Group (51162) Alkaline phosphatase 86 U/L Invalid - [facility] (ALP) Interpretation Code 11-15-2016 Group (47295) Aspartate 31 U/L Invalid 11-15-2016 - [facility] aminotransferase (AST) Interpretation Co de 11-15-2016 Group ([id number]) Bilirubin (total) 0.50 mg/dL Invalid 11-15-2016 - [facility] Interpretation Code 11-15-2016 Group (61677) BUN/Creatinine Ratio 14.2 mg/mg Invalid 7 - [facility] Interpretation Code 11-15-2016 Group (98246) Calcium 8.5 mg/dL Invalid 11-15-2016 - [facility] Interpretation Code 11-15-2016 Group (02740) Chloride 108 mmol/L Invalid 11-15-2016 - [facility] Interpretation Code 11-15-2016 Group (46884) Cholesterol 149 mg/dL Invalid 11-15-2016 - [facility] Interpretation Code 11-15-2016 Group (79209) CO2 24.0 mmol/L Invalid 11-15-2016 - [facility] Interpretation Code 11-15-2016 Group ([id number]) Creatinine 0.98 mg/dL Invalid 11-15-2016 - [facility] Interpretation Code 11-15-2016 Group (36132) Glucose 91 mg/dL Invalid 11-15-2016 - [facility] Interpretation Code 11-15-2016 Group (33133) Glucose mass conc 91 mg/dL Invalid 11-15-2016 - [facility] Interpretation Code 11-15-2016 Group (12454) HDL Cholesterol 57 mg/dL Invalid 11-15-2016 - [facility] Interpretation Code 11-15-2016 Group (56134) LDL Cholesterol 72 mg/dL Invalid 11-15-2016 - [facility] Interpretation Code 11-15-2016 Group (87998) Magnesium 1.9 mg/dL Invalid 11-15-2016 - [facility] Interpretation Code 11-15-2016 Group (35573) Potassium 4.3 mmol/L Invalid 11-15-2016 - [facility] Interpretation Code 11-15-2016 Group (77976) Protein 6.9 g/dL Invalid 11-15-2016 - [facility] Interpretation Code 11-15-2016 Group (04741) Sodium 141 mmol/L Invalid 11-15-2016 - [facility] Interpretation Code 11-15-2016 Group (76219) Triglyceride 101 mg/dL Invalid 11-15-2016 - [facility] Interpretation Code 11-15-2016 Group (48995) Urea nitrogen 14 mg/dL Invalid 11-15-2016 - [facility] Interpretation Code 11-15-2016 Group (74989) clinical lists update: preload on 2016-11-14 Hematocrit (HCT) 44.0 % Invalid 11-14-2016 - [facility] Interpretation Code 11-14-2016 Group ([id number]) Hemoglobin (HGB) 15.0 g/dL Invalid 11-14-2016 - [facility] Interpretation Code 11-14-2016 Group ([id number]) Platelets 192 10*3/mm3 Invalid 11-14-2016 - [facility] Interpretation Code 11-14-2016 Group ([id number]) WBC (Leukocytes) 8.7 10*9/L Invalid 11-14-2016 - [facility] Interpretation Code 11-14-2016 Group ([id number]) Vital Signs Vital Sign Description Value / Unit Date Location The following section is limited to 5 en tries per type and includes entries from the following time range: 20161214 - 5. BMI (Body Mass Index) 35.73 kg/m2 03-20-2017 - 03-20-2017 [facility] ([id number]) BMI (Body Mass Index) 34.66 kg/m2 12-14-2016 - 12-14-2016 [facility] (07713) BP Diastolic 62 mm[Hg] 03-20-2017 - 03-20-2017 [facility] ([id number]) BP Diastolic 58 mm[Hg] 12-14-2016 - 12-14-2016 [facility] (59113) BP Systolic 110 mm[Hg] 03-20-2017 - 03-20-2017 [facility] ([id number]) BP Systolic 110 mm[Hg] 12-14-2016 - 12-14-2016 [facility] ([id number]) Height 187.96 cm 03-20-2017 - 03-20-2017 [facility] ([id number]) Height 187.96 cm 12-14-2016 - 12-14-2016 [facility] (06836) Pulse (Heart Rate) 59 /min 03-20-2017 - 03-20-2017 [facility] ([id number]) Pulse (Heart Rate) 60 /min 12-14-2016 - 12-14-2016 [facility] (43938) Respiratory Rate 18 /min 03-20-2017 - 03-20-2017 [facility] (43215) Respiratory Rate 16 /min 12-14-2016 - 12-14-2016 [facility] ([id number]) Weight 126.24 kg 03-20-2017 - 03-20-2017 [facility] ([id number]) Weight 122.47 kg 12-14-2016 - 12-14-2016 [facility] ([id number]) Encounters Date Type Reason Provider Location 07-25-2017 - 07-25-2017 Ambulatory ZEN Carter FARIDA [facility] ([id number]) Procedures Procedure Name Date Provider Location Electrocardiogram, 03-20-2017 - Harley Walden [employer] [facility] complete 03-20-2017 ([id number]) Follow Up Appt 6 months 03-20-2017 - Harley Walden [employer] [facility] 03-20-2017 ([id number]) PFM 03-20-2017 - Harley Walden [employer] [facility] 03-20-2017 ([id number]) Electrocardiogram, 12-14-2016 - Kris Diana MD [facility] complete 12-18-2016 ([id number]) Plan of Treatment Plan Description Date Location Appointment Appointment 11-12-2017 - [facility] 11-12-2017 ([id number]) Appointment Appointment 03-20-2017 - [facility] 03-20-2017 ([id number]) Follow Up Appt 6 months Follow Up Appt 6 months 03-20-2017 - [facility] 03-20-2017 (07261) PFM PFM 03-20-2017 - [facility] 03-20-2017 (94952) Appointment Appointment 03-16-2017 - [facility] 03-16-2017 ([id number]) Appointment Appointment 03-16-2017 - [facility] 03-16-2017 ([id number]) Appointment Appointment 12-14-2016 - [facility] 12-14-2016 ([id number]) EKG (In office) EKG (In office) 12-14-2016 - [facility] 12-15-2016 ([id number]) Echocardiogram (complete) Echocardiogram (complete) 12-14-2016 - [facility] 12-15-2016 ([id number]) Follow Up Appt 3 months Follow Up Appt 3 months 12-14-2016 - [facility] 12-15-2016 (77292) MMM MMM 12-14-2016 - [facility] 12-15-2016 ([id number]) Echocardiogram (complete) Echocardiogram (complete) 12-14-2016 - [facility] 02-27-2017 (44856) EKG (In office) EKG (In office) 12-14-2016 - [facility] 12-18-2016 ([id number]) Follow Up Appt 3 months Follow Up Appt 3 months 12-14-2016 - [facility] 12-15-2016 ([id number]) MMM MM 12-14-2016 - [facility] 12-15-2016 ([id number]) Summary Purpose Family History No Family History [...] BE BASED ON THE PRIMARY CLINICAL RECORDS. [facility] provides no warranty or guarantee of the accuracy or completeness of information in this document. UNRECOGNIZED CONTENT PROVIDED BELOW FOR UNRECOGNIZED SECTION No Status Records Found UNRECOGNIZED CONTENT PROVIDED BELOW FOR UNRECOGNIZED SECTION INFORMATION SOURCE DATE CREATED AUTHOR AUTHOR'S ORGANIZATIO N 01/08/2018 [facility]
== END 2019-12-11 15:21 | disposition home or self-care (01) ==
PROVIDERS: Emergency Provider Emergency Medicine
DX: I48.91 Unspecified atrial fibrillation (principal); I10 Essential (primary) hypertension
CPT/HCPCS: 71045; 80048; 84484; 85025; 92960; 93005; 96361; 96374; 99285; J7030; A4216

== ENCOUNTER → 2020-01-27 11:00 | Outpatient (CLI) | payer BC, SELFPAY ==
[2020-01-21 07:14] VITALS: BMI 36.6
== END ==
PROVIDERS: Visit Provider Internal Medicine Critical Care Medicine
DX: G47.33 Obstructive sleep apnea (adult) (pediatric) (principal)
CPT/HCPCS: 95806

== ENCOUNTER → 2020-02-06 14:20 | Outpatient (CLI) | payer BC, SELFPAY ==
[2020-01-21 07:14] VITALS: BMI 36.6
--- NOTE | 2020-02-06 14:51 | ECHOD_ITS ---
Reason For Study: Afib Procedure This was a 2D Doppler, Color Flow transthoracic echocardiogram. The study was technically difficult. Exam performed in department. Left Ventricle Normal LV size. Left ventricular systolic function is normal. The estimated ejection fraction is 60 %. No evidence for diastolic dysfunction. No regional wall motion abnormalities noted. Right Ventricle Normal RV size. Normal systolic function. Atria Normal left atrium. Normal right atrium. No doppler evidence for ASD. Mitral Valve There is no mitral annular calcification. Normal mitral valve. Trivial mitral valve insufficiency. Tricuspid Valve Normal tricuspid valve. Trivial tricuspid valve insufficiency. Unable to estimate RV systolic pressure/pulmonary artery pressure due to technically difficult study. Aortic Valve Trisinus/trileaflet aortic valve. Normal aortic valve. Pulmonic Valve The pulmonic valve is not well visualized. Great Vessels The aortic root is not well visualized. Pericardium/Pleural No pericardial effusion. MMode/2D Measurements & Calculations LVIDd: 5.5 cm IVSd: 0.98 cm LVOT diam: 2.0 cm LVIDs: 2.9 cm LVPWd: 1.1 cm LVOT area: 3.2 cm2 FS: 46.2 % LA dimension: 4.1 cm LAV(MOD-bp): 45.3 ml LA A4 area: 16.3 cm2 LAV(MOD-bp) Indexed: 18.0 ml/m2 LAV(MOD-sp2): 48.0 ml LAV(MOD-sp4): 41.8 ml RA A4 area: 12.0 cm2 Time Measurements MV dec time: 0.20 sec Doppler Measurements & Calculations MV E max devaughn: 100.8 cm/sec Lat Peak E' Devaughn: 14.9 cm/sec Med Peak E' Devaughn: 12.0 cm/sec MV A max devaughn: 77.8 cm/sec E/E' lat: 6.8 E/E' med: 8.4 MV E/A: 1.3 MV V2 max: 105.9 cm/sec MV P1/2t max devaughn: 107.9 cm/sec Ao V2 max: 197.7 cm/sec MV max P.5 mmHg MV P1/2t: 121.0 msec Ao max P.7 mmHg MV V2 mean: 65.2 cm/sec MV dec slope: 261.0 cm/sec2 Ao V2 mean: 122.4 cm/sec MV mean P.9 mmHg Ao mean P.3 mmHg MV V2 VTI: 34.7 cm MVA(P1/2t): 1.8 cm2 Ao V2 VTI: 32.8 cm MVA(VTI): 2.7 cm2 ANTIONETTE(I,D): 2.8 cm2 ANTIONETTE(V,D): 2.5 cm2 LV V1 max: 154.9 cm/sec SV(LVOT): 91.9 ml PA V2 max: 103.0 cm/sec LV V1 max P.6 mmHg LV V1 mean P.3 mmHg LV V1 mean: 93.4 cm/sec LV V1 VTI: 28.9 cm Interpretation Summary The study was technically difficult. Left ventricular systolic function is normal. The estimated ejection fraction is 60 %. Trivial mitral valve insufficiency. Trivial tricuspid valve insufficiency. Unable to estimate RV systolic pressure/pulmonary artery pressure due to technically difficult study. No evidence for diastolic dysfunction. Ordering Physician: Kris Diana Referring Physician: Kris Diana Performed By: Jose Eduardo Myers RCS
== END ==
PROVIDERS: Referring Provider Internal Medicine Cardiovascular Disease; Visit Provider Internal Medicine Cardiovascular Disease
DX: R94.31 Abnormal electrocardiogram [ECG] [EKG] (principal); I48.0 Paroxysmal atrial fibrillation; I42.9 Cardiomyopathy, unspecified; I10 Essential (primary) hypertension
CPT/HCPCS: 93306

== ENCOUNTER → 2020-02-09 10:00 | Outpatient (CLI) | payer BC, SELFPAY ==
[2020-01-21 07:14] VITALS: BMI 36.6
== END ==
PROVIDERS: Visit Provider Nurse Practitioner Acute Care
DX: G47.33 Obstructive sleep apnea (adult) (pediatric) (principal)

== ENCOUNTER 2023-01-28 13:47 | Inpatient (IN) | payer BC, SELFPAY ==
[2023-01-28] VITALS (21 sets, daily range): BP systolic 100–126; BP diastolic 46–85; PULSE 56–148; RESP 16–26; TEMP 35.8–36.7; O2SAT 94–100; BMI 34.0
--- NOTE | 2023-01-28 14:00 | EX.ED.DYSGE1 ---
HPI History of Present Illness Chief Complaint: Palpitations Informant: patient Narrative Narrative: Patient presents with complaints of being in atrial fibrillation. Patient has a history of atrial fibrillation going back many years. Normally about every 2 years he goes back in it. In the past he was on Xarelto. He would come in and he would get cardioverted and do well for a while. But he has been off Xarelto for a long time now. The cost was somewhat prohibitive so he has just been on aspirin. No change in medications. He will occasionally miss a dose but is quite rare. He missed some of his meds about a week ago but he had no symptoms that he knows of them. He thinks this started around 630 this morning. He has no chest pain or shortness of breath but he does feel slightly lightheaded. No history of thyroid disease. No cold medicines or antihistamines. No recent travel surgery immobilization personal family history of DVT or PE. He did have some beers on Sunday night and only drinks occasionally. [facility] Medical History (Updated 01/28/23 @ 15:[address] Lázaro Rivera MD) Alcohol abuse Cardiomyopathy Essential hypertension Obesity (BMI 35.0-39.9 without comorbidity) Paroxysmal atrial fibrillation Tobacco abuse Home Medications lisinopril 5 mg tablet 5 mg PO DAILY #90 tabs 04/27/22 [Rx Last Taken Unknown] metoprolol succinate 25 mg tablet,extended release 24 hr 25 mg PO DAILY #90 tabs 04/27/22 [Rx Last Taken Unknown] aspirin 81 mg tablet,delayed release 81 mg PO DAILY #90 tabs 06/05/22 [Rx Last Taken Unknown] Allergy/AdvReac Type Severity Reaction Status Date / Time No Known Allergies Allergy Verified 01/28/23 13:50 Family History Other No pertinent family history Surgical History No pertinent past surgical history Social History Smoking Status: Former smoker Smokeless tobacco user: chewing tobacco alcohol intake: current details: 8-10 beers 3-4 days per week substance use type: does not use ROS ROS ED ROS Narrative A complete review of systems was performed and is negative except as documented in the history of present illness. Some specific details below. Constitutional: No recent fevers or chills. No malaise ENT: No difficulty swallowing. No swelling. No pain. No reflux symptoms. CV: See history of present illness. Respiratory: Denies dyspnea or cough or chest pain. No hemoptysis. GI: No abdominal pain. No nausea vomiting diarrhea. No blood in stool. : No frequency dysuria or hematuria. Musculoskeletal: No recent trauma. No pains. No swelling. Skin: No rash. Nondiaphoretic. Neuro: No weakness or numbness. No discoordination. No visual or speech difficulties. Endocrine: No polyuria or polydipsia. EXAM Physical Exam Narrative Exam Narrative: CONSTITUTIONAL: Patient is nontoxic in appearance. The patient looks comfortable. Work of breathing looks normal. HEENT: No notable trauma. Mucous membranes moist. No sinus tenderness. No indication of pain with swallowing. EYES: No conjunctival injection. No proptosis. NECK:No JVD. No stridor. CARDIOVASCULAR: Mildly tachycardic rate. He varies between about 120 and 150. Irregularly irregular rhythm. No notable murmur. No JVD. RESPIRATORY: No respiratory distress. Breathing is unlabored. No wheezes. No rhonchi. No rales. No pain with a deep breath. No chest wall tenderness. GASTROINTESTINAL: Not distended. Bowel sounds are normal. No tenderness. No guarding. No rebound. No palpable mass. No bruit is heard. GENITOURINARY: No tenderness over the bladder. No CVA tenderness. MUSCULOSKELETAL: Atraumatic. No peripheral edema. No cord. No tenderness along the deep venous system. No asymmetry. No distended veins. NEUROLOGICAL: Patient is alert and appropriate. No focal deficit noted. Gait is stable. Speech is normal. Vision is grossly normal. SKIN: No noted rashes. No diaphoresis. PSYCHIATRIC: Patient is calm. Mood is appropriate. Const Vital Signs: 01/28/23 13:48 01/28/23 14:00 01/28/23 14:01 Temperature 96.4 F L Temperature Source Temporal Pulse Rate 56 L 137 H Respiratory Rate 18 22 H Respiratory Effort Respiratory Pattern Blood Pressure 126/81 H 114/77 Blood Pressure Mean 96 89 Pulse Ox 100 97 Oxygen Delivery Method Room Air Room Air Room Air 01/28/23 14:03 01/28/23 15:00 Temperature Temperature Source Pulse Rate 148 H Respiratory Rate 20 H Respiratory Effort Normal Respiratory Pattern Normal Blood Pressure 101/74 Blood Pressure Mean 83 Pulse Ox 97 Oxygen Delivery Method Room Air MDM MDM MDM Narrative Medical decision making narrative: Patient CBC is normal. Patient's electrolytes show no marked abnormalities. Patient's troponin is negative and he has had symptoms for at least 6 hours. My independent interpretation the patient's single AP chest x-ray shows no acute process. Final reading is no radiographic evidence of acute cardiopulmonary disease. Patient took his metoprolol last night and he took it this morning. I have given him 2 doses here. We really have not made any significant change in his heart rate. Occasionally he will go down to about 110 but he will go back up to the mid upper 140s again. He is comfortable. He is not having chest pain. But he is getting more difficult to manage. I explained that I do not think this is someone we should cardiovert as he is not anticoagulated and has not been on anticoagulation for almost 2 years. At this point I think we need to get him on a titratable drip to get his rate under control and admission to the hospital. He may need further echocardiogram, anticoagulation and cardioversion in the future. Lab Data Attestation: I reviewed the patient's lab results. Labs: Laboratory Results - last 24 hr 01/28/23 14:15 WBC 7.6 RBC 5.10 Hgb 15.9 Hct 45.9 MCV 90.0 MCH 31.2 MCHC 34.6 RDW Std Deviation 41.3 RDW Coeff of Corinne 12.5 Plt Count 180 MPV 9.1 Immature Gran % (Auto) 0.400 Neut % (Auto) 60.9 Lymph % (Auto) 28.9 [place] % (Auto) 6.6 Eos % (Auto) 2.5 Baso % (Auto) 0.7 Absolute Neuts (auto) 4.6 Absolute Lymphs (auto) 2.20 Nucleated RBC % 0 Sodium 138 Potassium 4.4 Chloride 109 H Carbon Dioxide 24.0 Anion Gap 5 BUN 22 H Creatinine 1.08 Estim Creat Clear Calc 104.65 Est GFR (MDRD) Af Amer 97 Est GFR (MDRD) Non-Af 80 BUN/Creatinine Ratio 20.4 H Glucose 107 H Calcium 9.0 Troponin I High Sens 5 Radiography Diagnostic Testing: Clinical Impression(s) from Imaging Studies Chest X-Ray 01/28/23 14:15 IMPRESSION: No radiographic evidence of acute cardiopulmonary disease. Electronically Signed: Yang Alexander MD at 14:36 EDT , EKG Initial EKG: Comments: My independent interpretation the patient's EKG shows atrial fibrillation with overall rate of 149 showing rapid response. There are some PVCs. There is no acute ST elevation or depression. QRS duration and QTc are normal. Management Discussion w/another healthcare provider: Hospitalist Discharge Plan Triage Chief Complaint: Palpitations ED Provider: Lázaro Rivera Dx/Rx/DC Orders Clinical Impression: History of cardioversion, History of hypertension, Atrial fibrillation with RVR Prescriptions: No Action lisinopril 5 mg tablet 5 mg PO DAILY Qty: 90 3RF metoprolol succinate 25 mg tablet extended release 24 hr 25 mg PO DAILY Qty: 90 3RF aspirin 81 mg tablet,delayed release (DR/EC) 81 mg PO DAILY Qty: 90 3RF Primary Care Provider: Care Physician,No Primary Referrals: Care Physician,No Primary [Primary Care Provider] - Disposition Disposition: Acute Care Hospital [facility]
[2023-01-28] MEDS: 0.9% Normal Saline 1,000 ML 1000 ML IV (14:12)
[2023-01-28] MEDS: Metoprolol Tartrate 5 MG/5 ML Vial IV ×2 (14:13→15:02)
--- NOTE | 2023-01-28 14:15 | RAD_ITS ---
INDICATION: chest pain EXAMINATION/TECHNIQUE: X-RAY - XR Chest 1 View COMPARISON: 12/11/2019 FINDINGS: LINES/DEVICES: None. LUNGS: No consolidation, edema or effusion. No pneumothorax. MEDIASTINUM AND CARDIOVASCULAR STRUCTURES: Cardiac silhouette not enlarged. Central airways and mediastinal contour are unremarkable. BONES AND SOFT TISSUES: Unremarkable. RAD/Chest 1 View (Portable) IMPRESSION: No radiographic evidence of acute cardiopulmonary disease. Electronically Signed: Yang Alexander MD at 14:36 EDT ,
[2023-01-28 14:20] LABS: Absolute Neutrophil Count 4.6 X10^3/uL (2.0-7.7); Basophil# 0.05 X10^3/uL; Basophil% 0.7 % (0-1); Eosinophil# 0.19 X10^3/uL; Eosinophils% 2.5 % (0-5); Hematocrit 45.9 % (40-54); Hemoglobin 15.9 g/dL (13.0-16.5); Lymphocyte % 28.9 % (19-41); Mean Corp Hgb Conc 34.6 g/dL (32-36); Mean Corpuscular Hgb 31.2 pg (27.0-32.0); Mean Platelet Vol. 9.1 fl (6.2-12.0); Monocyte% 6.6 % (0-10); NRBC Flagged by Analyzer 0 % (0-5); Neutrophil # 4.64 X10^3/uL (2.7-7.7); Neutrophil % 60.9 % (47-70); Platelet Count 180 K/mm3 (150-450); RBC Distribution Width CV 12.5 % (11.6-14.6); RBC Distribution Width SD 41.3 fl (35.1-43.9); White Blood Count 7.6 K/mm3 (4.4-11.0)
[2023-01-28 14:37] LABS: Anion Gap 5 (5-15); BUN 22 mg/dL (7-18); BUN/Creat Ratio 20.4 RATIO (10-20); Chloride 109 mmol/L (98-107); Creatinine, Serum 1.08 mg/dL (0.70-1.30); EST Glomerular Filtration Rate 80 mL/min (>60); Est Glom Filt Rate - Afr Amer 97 mL/min (>60); Estimated Creatinine Clearance 104.65 ml/min; Glucose 107 mg/dL (74-106); Potassium 4.4 mmol/L (3.5-5.1); Sodium Level 138 mmol/L (136-145); Troponin-I HS 5 pg/mL (3.0-78.0)
--- NOTE | 2023-01-28 16:07 | HP.PCM.HOS_ITS ---
HPI - General General Date of Admission: 01/28/23 Date of Service: 01/28/23 Chief Complaint: Palpitations HPI Narrative STACIA CRAIN, is a 42 M who presents with palpitations. Patient past medical history single for paroxysmal A-fib for which he has undergone previous cardioversion. Currently only on aspirin. Per patient he was in his usual state of health when he experienced sudden onset of palpitation. He also felt lightheaded. He felt he was in A-fib and subsequently presented to the emergency department. EKG obtained did show A-fib with RVR started on Cardizem drip and subsequently admitted to monitored bed for further manage [facility] Medical History Alcohol abuse Cardiomyopathy Essential hypertension Obesity (BMI 35.0-39.9 without comorbidity) Paroxysmal atrial fibrillation Tobacco abuse Home Medications lisinopril 5 mg tablet 5 mg PO DAILY #90 tabs 04/27/22 [Rx Last Taken Unknown] metoprolol succinate 25 mg tablet,extended release 24 hr 25 mg PO DAILY #90 tabs 04/27/22 [Rx Last Taken Unknown] aspirin 81 mg tablet,delayed release 81 mg PO DAILY #90 tabs 06/05/22 [Rx Last Taken Unknown] Allergy/AdvReac Type Severity Reaction Status Date / Time No Known Allergies Allergy Verified 01/28/23 13:50 Family History Other No pertinent family history no significant family history Surgical History No pertinent past surgical history Social History Smoking Status: Former smoker Smokeless tobacco user: chewing tobacco alcohol intake: current details: 8-10 beers 3-4 days per week substance use type: does not use ROS ROS Narrative GENERAL: denies fever, chills, night sweats, weight loss, anorexia HEENT: denies headache, sinus congestion, or drainage, dysphagia RESPIRATORY: denies cough, sputum production, shortness of breath, dyspnea on exertion CARDIAC: palpitations and lightheaded GASTROINTESTINAL: denies abdominal pain, nausea, vomiting, melena, GENITOURINARY: denies dysuria, urgency, frequency, heamaturia EXTREMITY: denies swelling MUSCULOSKELETAL: denies current joint pain or tenderness NEUROLOGIC: denies focal numbness, weakness, tingling HEMATOLOGIC: denies easy bruising and/or hemorrhage INTEGUMENT: denies rashes PSYCHIATRIC: denies suicidal or homicidal ideation Vital Signs Vital Signs Vital Signs: 01/28/23 13:48 01/28/23 14:00 01/28/23 14:01 Temperature 96.4 F L Temperature Source Temporal Pulse Rate 56 L 137 H Respiratory Rate 18 22 H Respiratory Effort Respiratory Pattern Blood Pressure 126/81 H 114/77 Blood Pressure Mean 96 89 Pulse Ox 100 97 Oxygen Delivery Method Room Air Room Air Room Air 01/28/23 14:03 01/28/23 15:00 Temperature Temperature Source Pulse Rate 148 H Respiratory Rate 20 H Respiratory Effort Normal Respiratory Pattern Normal Blood Pressure 101/74 Blood Pressure Mean 83 Pulse Ox 97 Oxygen Delivery Method Room Air Weight Weight: 120.066 kg Body Mass Index (BMI) 34.0 Physical Exam Narrative GENERAL: cooperative HEENT: Atraumatic; normocephalic EYES; Anicteric, Normal Conjunctiva NECK; supple, normal thyroid, RESPIRATORY: Diminished to auscultation CARDIOVASCULAR: Regular S1-S2 tachycardic GI: soft, normoactive bowel sounds, : No Renal angle tenderness; EXTREMITIES: No edema, no clubbing, MUSCULOSKELETAL: no muscle wasting NEURO: Awake; no lateralizing signs. SKIN: No Rash PSYCH; Flat affect Results Lab / Micro Data 01/28/23 14:15 01/28/23 14:15 Labs: Laboratory Results - last 24 hr 01/28/23 14:15: WBC 7.6, RBC 5.10, Hgb 15.9, Hct 45.9, MCV 90.0, MCH 31.2, MCHC 34.6, RDW Std Deviation 41.3, RDW Coeff of Corinne 12.5, Plt Count 180, MPV 9.1, Immature Gran % (Auto) 0.400, Neut % (Auto) 60.9, Lymph % (Auto) 28.9, [place] % (Auto) 6.6, Eos % (Auto) 2.5, Baso % (Auto) 0.7, Absolute Neuts (auto) 4.6, Absolute Lymphs (auto) 2.20, Nucleated RBC % 0, Sodium 138, Potassium 4.4, Chloride 109 H, Carbon Dioxide 24.0, Anion Gap 5, BUN 22 H, Creatinine 1.08, Estim Creat Clear Calc 104.65, Est GFR (MDRD) Af Amer 97, Est GFR (MDRD) Non-Af 80, BUN/Creatinine Ratio 20.4 H, Glucose 107 H, Calcium 9.0, Troponin I High Sens 5 Radiology Impression Chest X-Ray 01/28/23 14:15 IMPRESSION: No radiographic evidence of acute cardiopulmonary disease. Electronically Signed: Yang Alexander MD at 14:36 EDT , Assessment & Plan Assessment/Plan (1) Atrial fibrillation with RVR: PLAN: Plan Patient is a 42-year-old gentleman presenting with A-fib with RVR 1. Paroxysmal A-fib ? Patient presented with RVR did receive Cardizem bolus in the ED without much effect subsequently started on Cardizem drip admitted to the progressive care unit for subsequent management. As part of patient's evaluation ordered 2D echo serial cardiac enzymes and continuous telemetry monitoring. If patient does not convert on Cardizem we will consider obtaining cardiology consultation in a.m. patient was started on systemic anticoagulation with apixaban 2. Hypertension - Blood pressure controlled, home medications continued with dose adjustment as needed 3. Obstructive sleep apnea ? Currently on Pap therapy 4. Class I obesity with BMI of 34 ? Complicating care weight loss advised 5. DVT prophylaxis ? On apixaban CODE STATUS; full code Time spent in the patient's overall evaluation,decision-making process, review of diagnostic data, adjustment of management, discussion with other providers, nursing nursing and ancillary staff involved in patient's care documentation, 60 minutes Charges/Coding Visit Charges Inpatient E&M: 09284 Init Hosp L2
--- NOTE | 2023-01-28 17:00 | ECHOD_ITS ---
Reason For Study: ATRIAL FIB-FLUTTER Procedure This was a 2D Doppler, Color Flow transthoracic echocardiogram. Exam performed portable in patient room. Left Ventricle Normal size and thickness. The left ventricular ejection fraction is 60 %. Unable to assess diastolic dysfunction due to arrhythmia. Right Ventricle Normal right ventricle. Atria The left and right atria are normal. Mitral Valve Normal mitral valve. Tricuspid Valve Normal tricuspid valve. Aortic Valve Normal aortic valve. Pulmonic Valve The pulmonic valve is not well visualized. Great Vessels Normal sized aortic root. Pericardium/Pleural No pericardial effusion. MMode/2D Measurements & Calculations LVIDd: 5.0 cm IVSd: 0.94 cm Ao root diam: 3.2 cm LVIDs: 3.3 cm LVPWd: 0.99 cm RVDd: 3.6 cm FS: 35.1 % LAV(MOD-bp): 46.0 ml LVAd ap4: 32.7 cm2 SV(MOD-sp4): 68.9 ml LAV(MOD-bp) Indexed: 18.8 ml/m2 LVLd ap4: 7.9 cm LAV(MOD-sp2): 45.4 ml EDV(MOD-sp4): 111.3 ml LAV(MOD-sp4): 40.9 ml EDV(sp4-el): 114.9 ml LVAs ap4: 18.7 cm2 LVLs ap4: 7.0 cm ESV(MOD-sp4): 42.3 ml ESV(sp4-el): 42.3 ml EF(MOD-sp4): 62.0 % EF(sp4-el): 63.2 % SV(sp4-el): 72.6 ml LA A4 area: 17.5 cm2 LA dimension(2D): 4.1 cm RA A4 area: 17.2 cm2 Doppler Measurements & Calculations MV E max yesenia: 108.0 cm/sec Ao V2 max: 155.1 cm/sec LV V1 max: 124.9 cm/sec Ao max P.1 mmHg LV V1 max P.3 mmHg PA V2 max: 127.0 cm/sec ECHO/Echo Complete Interpretation Summary The left ventricular ejection fraction is 60 %. Unable to assess diastolic dysfunction due to arrhythmia. Ordering Physician: Jose Martin Lopez Performed By: Sridevi Umana RDCS
[2023-01-28 18:32] LABS: Thyroid Stim Hormone (TSH) 0.84 uIU/mL (0.358-3.74); Troponin-I HS 6 pg/mL (3.0-78.0)
[2023-01-28] MEDS: APIXABAN 5 MG TABLET PO (20:48)
[2023-01-28 21:16] LABS: Troponin-I HS 6 pg/mL (3.0-78.0)
[2023-01-29] VITALS (31 sets, daily range): BP systolic 91–134; BP diastolic 55–102; PULSE 81–118; RESP 12–22; TEMP 36.6–36.7; O2SAT 92–98
[2023-01-29 05:34] LABS: AST(SGOT) 16 U/L (15-37); Alanine Aminotransfer ALT/SGPT 28 U/L (16-61); Albumin, Serum 3.2 g/dL (3.2-5.0); Alkaline Phosphatase 77 U/L (45-117); Anion Gap 5 (5-15); BUN 18 mg/dL (7-18); BUN/Creat Ratio 19.8 RATIO (10-20); Calcium,Total 8.6 mg/dL (8.5-10.1); Chloride 110 mmol/L (98-107); Creatinine, Serum 0.91 mg/dL (0.70-1.30); EST Glomerular Filtration Rate 97 mL/min (>60); Est Glom Filt Rate - Afr Amer 118 mL/min (>60); Globulin 3.2 g/dL (2.2-4.2); Glucose 98 mg/dL (74-106); Potassium 4.1 mmol/L (3.5-5.1); Protein, Total 6.4 g/dL (6.4-8.2); Sodium Level 140 mmol/L (136-145)
[2023-01-29] MEDS: APIXABAN 5 MG TABLET PO ×2 (09:11→21:16)
[2023-01-29] MEDS: Aspirin E.C. 81 MG Tablet PO (09:11)
[2023-01-29] MEDS: Metoprolol(XL)Succ 25 MG Tablet PO ×2 (09:12→12:21)
--- NOTE | 2023-01-29 10:45 | CASEMGMT ---
RN?CM?INSURANCE SPECIALIST?CM?to room to meet with patient for initial transition planning/care coordination?assessment.?RN?CM?introduced self and role at [facility].? Pt voices understanding and consents to?assessment?at this time.? Pt resting in bed in no distress at this time.?Pt's and his parents @ bedside and pt agreeable to all of them being present during CM assessment. Pt is A/O at this time and answers all questions appropriately.?? Care providers, pharmacy, and demographics verified/updated at this time. PCP:Dr Perkins- [facility] Specialists: G/cardiology. Pt used to see Dr Diana but now that he is no longer in that office pt plans to start seeing a different appliance service technician w/in [facility]. Advised to f/u with the office about scheduling an appt. Pt used to see Dr Guevara/pulmonology, but no longer sees him. [facility] Insurance: [place] Prescription Benefit:?Yes. Pt has been on Eliquis, but d/t high cost, he stopped taking it. He and verify he has used the Eliquis savings card in the past, stating it was affordable for about 3 months w/use of the card, but then the maurer went up to ~ $500/month. Provided w/Eliquis benefits form and advised to go on Eliquis website for possible rx assistance. Pt and state they do not think pt will qualify for any financial assistance. DARYN RENDON advised to f/u with appliance service technician to discuss other possible more affordable options, if he does not qualify for assistance. LNOK: Living Arrangements: Lives w/ and kids in split-level home. Independent. Transportation:?Pt states drives self and states no transportation concerns at this time.? also drives. DME: ?States has the following DME:?Pt has a CPAP but does not use it. Stated he tried it for about 3 months but could not tolerate it. DARYN RENDON advised to f/u with the DME co he got it from to inquire if he could be fitted/trialed w/a different mask. Pt states no need for further DME at this time.? HHC/SNF: No hx of either. No needs identified. Pt wishes to return home and states has no concerns with going home at time of discharge.? Pt states does not smoke. He states he drinks about 8-10 beers QOD and has drank for about 20 yrs. He declines wanting any resources for quitting. CM?to follow for any further discharge planning/needs.? Pt and voice no further concerns/needs at this time.? Advised them to ask for?CM?if any further questions/concerns/needs arise.? They voice understanding. PLAN:??Home Maddi BSN?RN?CM
--- NOTE | 2023-01-29 13:35 | PN.HOSP_ITS ---
Reason for Visit Reason for Visit: Diagnoses Unspecified atrial fibrillation (01/28/23) Objective Data Objective Data Vital Signs: Vital Signs Temp Pulse Resp BP Pulse Ox O2 Del Method 97.8 F 99 17 119/64 96 Room Air 01/29/23 10:06 01/29/23 13:03 01/29/23 13:03 01/29/23 13:03 01/29/23 13:03 01/29/23 13:03 Oxygen Delivery Method Room Air Weight: 120.1 kg Body Mass Index (BMI) 34.0 Intake & Output: Intake and Output for Last 24 Hours 01/27/23 01/28/23 01/29/23 23:59 23:59 23:59 Intake Total 1064.01 / 1326.51 492.5 / 492.5 Balance 1064.01 / 1326.51 492.5 / 492.5 Lab / Micro Data 01/28/23 14:15 01/29/23 04:30 Labs: Laboratory Results - last 24 hr 01/28/23 14:15: WBC 7.6, RBC 5.10, Hgb 15.9, Hct 45.9, MCV 90.0, MCH 31.2, MCHC 34.6, RDW Std Deviation 41.3, RDW Coeff of Corinne 12.5, Plt Count 180, MPV 9.1, Immature Gran % (Auto) 0.400, Neut % (Auto) 60.9, Lymph % (Auto) 28.9, [place] % (Auto) 6.6, Eos % (Auto) 2.5, Baso % (Auto) 0.7, Absolute Neuts (auto) 4.6, Absolute Lymphs (auto) 2.20, Nucleated RBC % 0, Sodium 138, Potassium 4.4, Chloride 109 H, Carbon Dioxide 24.0, Anion Gap 5, BUN 22 H, Creatinine 1.08, Estim Creat Clear Calc 104.65, Est GFR (MDRD) Af Amer 97, Est GFR (MDRD) Non-Af 80, BUN/Creatinine Ratio 20.4 H, Glucose 107 H, Calcium 9.0, Troponin I High Sens 5 01/28/23 17:50: Troponin I High Sens 6, TSH 0.84 01/28/23 20:34: Troponin I High Sens 6 01/29/23 04:30: Sodium 140, Potassium 4.1, Chloride 110 H, Carbon Dioxide 25.0, Anion Gap 5, BUN 18, Creatinine 0.91, Estim Creat Clear Calc 124.20, Est GFR (MDRD) Af Amer 118, Est GFR (MDRD) Non-Af 97, BUN/Creatinine Ratio 19.8, Glucose 98, Calcium 8.6, Total Bilirubin 0.30, AST 16, ALT 28, Alkaline Phosphatase 77, Total Protein 6.4, Albumin 3.2, Globulin 3.2, Albumin/Globulin Ratio 1.0 Radiography Diagnostic Testing: Radiology Impression Chest X-Ray 01/28/23 14:15 IMPRESSION: No radiographic evidence of acute cardiopulmonary disease. Electronically Signed: Yang Alexander MD at 14:36 EDT , Echocardiogram 01/28/23 17:00 Interpretation Summary The left ventricular ejection fraction is 60 %. Unable to assess diastolic dysfunction due to arrhythmia. Ordering Physician: Jose Martin Lopez Performed By: Sridevi Umana, REAL Assessment & Plan Assessment/Plan (1) Atrial fibrillation with RVR: PLAN: Plan #afib w/ rvr -hx cardioversion -back in afib w/ rvr on admission, patient symptomatic when in RVR -On cardizem gtt -Restarted on AC, patient noncompliant at home due to cost -Cross titrate to increase dose of metoprolol -Echo with EF of 60% and unable to assess diastolic dysfunction due to arrhythmia but no other abnormalities noted -If patient remains symptomatic with rate control may need ANGELES cardioversion especially given he has not been taking anticoagulation, will monitor -We will consider cardiology consult pending response to increased dose of beta- bruce #hypertension - Blood pressure controlled, home medications continued with dose adjustment as needed #Obstructive sleep apnea ? Currently on Pap therapy # Class I obesity with BMI of 34 ? Complicating care weight loss advised # DVT prophylaxis ? On apixaban Time spent in the patient's overall evaluation,decision-making process, review of diagnostic data, adjustment of management, discussion with other providers, nursing nursing and ancillary staff involved in patient's care documentation, 40 minutes Charges/Coding Visit Charges Inpatient E&M: 65518 Subs Hosp L2
[2023-01-29 14:24] LABS: Magnesium 2.2 mg/dL (1.6-2.6); Phosphorus 3.9 mg/dL (2.5-4.9)
[2023-01-30] VITALS (18 sets, daily range): BP systolic 74–131; BP diastolic 49–107; PULSE 54–128; RESP 14–22; TEMP 36.4–36.7; O2SAT 93–99
[2023-01-30 06:33] LABS: Absolute Lymphocyte Count 2.57 X10^3/uL (0.83-4.51); Absolute Neutrophil Count 4.4 X10^3/uL (2.0-7.7); Basophil# 0.03 X10^3/uL; Basophil% 0.4 % (0-1); Eosinophil# 0.18 X10^3/uL; Eosinophils% 2.3 % (0-5); Hematocrit 45.9 % (40-54); Hemoglobin 15.6 g/dL (13.0-16.5); Lymphocyte # 2.57 X10^3/ul (0.83-4.51); Lymphocyte % 33.3 % (19-41); Mean Corpuscular Hgb 30.6 pg (27.0-32.0); Mean Platelet Vol. 9.1 fl (6.2-12.0); Monocyte# 0.52 X10^3/uL; Monocyte% 6.7 % (0-10); NRBC Flagged by Analyzer 0 % (0-5); Neutrophil # 4.38 X10^3/uL (2.7-7.7); Neutrophil % 56.8 % (47-70); Platelet Count 182 K/mm3 (150-450); RBC Distribution Width CV 12.7 % (11.6-14.6); RBC Distribution Width SD 41.9 fl (35.1-43.9); White Blood Count 7.7 K/mm3 (4.4-11.0)
[2023-01-30 07:09] LABS: Anion Gap 3 (5-15); BUN 16 mg/dL (7-18); BUN/Creat Ratio 16.1 RATIO (10-20); Calcium,Total 8.9 mg/dL (8.5-10.1); Chloride 108 mmol/L (98-107); Creatinine, Serum 0.99 mg/dL (0.70-1.30); EST Glomerular Filtration Rate 88 mL/min (>60); Est Glom Filt Rate - Afr Amer 107 mL/min (>60); Estimated Creatinine Clearance 114.17 ml/min; Glucose 100 mg/dL (74-106); Potassium 4.1 mmol/L (3.5-5.1); Sodium Level 139 mmol/L (136-145)
[2023-01-30] MEDS: Metoprolol(XL)Succ 50 MG Tablet PO (09:17)
[2023-01-30] MEDS: APIXABAN 5 MG TABLET PO (09:17)
[2023-01-30] MEDS: Aspirin E.C. 81 MG Tablet PO (09:17)
--- NOTE | 2023-01-30 10:27 | PN.HOSP_ITS ---
Reason for Visit Reason for Visit: Diagnoses Unspecified atrial fibrillation (01/28/23) Subjective Subjective Denies any chest pain or shortness of breath, remains in A-fib Objective Data Objective Data Vital Signs: Vital Signs Temp Pulse Resp BP Pulse Ox O2 Del Method 97.5 F L 128 H 22 H 131/107 H 94 Room Air 01/30/23 03:45 01/30/23 09:17 01/30/23 09:00 01/30/23 09:00 01/30/23 09:00 01/30/23 09:08 Oxygen Delivery Method Room Air Weight: 120.1 kg Body Mass Index (BMI) 34.0 Intake & Output: Intake and Output for Last 24 Hours 01/28/23 01/29/23 01/30/23 23:59 23:59 23:59 Intake Total 1064.01 / 1326.51 1195.00 / 1205.00 70.00 / 70.00 Output Total 0 / 0 Balance 1064.01 / 1326.51 1195.00 / 1205.00 70.00 / 70.00 Lab / Micro Data 01/30/23 06:01 01/30/23 06:01 Labs: Laboratory Results - last 24 hr 01/29/23 04:30: Phosphorus 3.9, Magnesium 2.2 01/30/23 06:01: WBC 7.7, RBC 5.10, Hgb 15.6, Hct 45.9, MCV 90.0, MCH 30.6, MCHC 34.0, RDW Std Deviation 41.9, RDW Coeff of Corinne 12.7, Plt Count 182, MPV 9.1, Immature Gran % (Auto) 0.500, Neut % (Auto) 56.8, Lymph % (Auto) 33.3, [place] % (Auto) 6.7, Eos % (Auto) 2.3, Baso % (Auto) 0.4, Absolute Neuts (auto) 4.4, Absolute Lymphs (auto) 2.57, Nucleated RBC % 0, Sodium 139, Potassium 4.1, C hloride 108 H, Carbon Dioxide 28.0, Anion Gap 3 L, BUN 16, Creatinine 0.99, Estim Creat Clear Calc 114.17, Est GFR (MDRD) Af Amer 107, Est GFR (MDRD) Non-Af 88, BUN/Creatinine Ratio 16.1, Glucose 100, Calcium 8.9 Radiography Diagnostic Testing: Radiology Impression Echocardiogram 01/28/23 17:00 Interpretation Summary The left ventricular ejection fraction is 60 %. Unable to assess diastolic dysfunction due to arrhythmia. Ordering Physician: Jose Martin Lopez Performed By: Sridevi Umana RDCS Physical Exam Narrative General: Alert, oriented, no apparent distress HEENT: Atraumatic, normocephalic Eyes: Anicteric, normal conjunctiva, extraocular movements grossly intact Neck: Supple Respiratory: Clear to auscultation bilaterally, normal respiratory effort Cardiovascular: Tachycardic, irregularly irregular GI: Soft, nontender, nondistended Extremities: No edema Musculoskeletal: Moving all extremities Neuro: No overt focal neurological deficits Skin: No rashes appreciated Psych: Cooperative Assessment & Plan Assessment/Plan (1) Atrial fibrillation with RVR: PLAN: Plan #afib w/ rvr -hx cardioversion -back in afib w/ rvr on admission, patient symptomatic when in RVR -On cardizem gtt -Restarted on AC, patient noncompliant at home due to cost -Cross titrate to increase dose of metoprolol -Echo with EF of 60% and unable to assess diastolic dysfunction due to arrhythmia but no other abnormalities noted -If patient remains symptomatic with rate control may need ANGELES cardioversion especially given he has not been taking anticoagulation, will monitor -We will consider cardiology consult pending response to increased dose of beta- bruce -01/30: Continue to increase beta-bruce and wean down Cardizem drip, will likely need to add Cardizem later today, patient has a lot of ectopy and is symptomatic with his A-fib and has required cardioversion in the past, suspect he went back to A-fib due to noncompliance with CPAP largely. We will consult cardiology due to the being symptomatic in A-fib and on escalating doses of beta-bruce with minimal improvement #hypertension - Blood pressure controlled, home medications continued with dose adjustment as needed #Obstructive sleep apnea ? Patient reports noncompliance at home, suspect this is contributing to #1 # Class I obesity with BMI of 34 ? Complicating care weight loss advised # DVT prophylaxis ? On apixaban Time spent in the patient's overall evaluation,decision-making process, review of diagnostic data, adjustment of management, discussion with other providers, nursing nursing and ancillary staff involved in patient's care documentation, 40 minutes Charges/Coding Visit Charges Inpatient E&M: 80167 Subs Hosp L2
--- NOTE | 2023-01-30 10:54 | EKG12_ITS ---
Test Reason : CONV Blood Pressure : / mmHG Vent. Rate : 062 BPM Atrial Rate : 062 BPM P-R Int : 148 ms QRS Dur : 082 ms QT Int : 420 ms P-R-T Axes : 059 071 067 degrees QTc Int : 426 ms Normal sinus rhythm Normal ECG When compared with ECG of 28-JAN-2023 14:00, MANUAL COMPARISON REQUIRED, DATA IS UNCONFIRMED Confirmed by BRIEN WELLS, MATT ([id number]), pictures editor MARIA ELENA HALL ([id number]) on 02/06/2023 7:13:04 AM Referred By: SKYLAR Confirmed By:MATT TESFAYE MD
[2023-01-30] MEDS: Metoprolol(XL)Succ 25 MG Tablet PO (11:01)
--- NOTE | 2023-01-30 12:19 | PCM.CONS.C ---
Assessment & Plan Assessment/Plan (1) Atrial fibrillation with RVR: (2) Essential hypertension: (3) RUDY (obstructive sleep apnea): PLAN: Plan Patient did convert to sinus rhythm. Feel that patient can be discharged home on his higher dose of metoprolol. Would also recommend that he be anticoagulated for at least 30 days prior to stopping this. He does have a [id number] of 1. Patient was instructed that if he does not have enough Eliquis at home as he states he does have 1 bottle at home that he should call the [facility] we can give him a 30-day prescription for Xarelto. He did use a 30-day co-pay card at his last hospital stay for his Eliquis. Did review with patient about compliance of using CPAP. At patient's office visit we will further discuss ways to help with his atrial fibrillation such as referring to EP for a cardiac ablation. This patient was discussed in detail with Dr. Motley, he agrees with plan of care. HPI Consult Data Date of Consult: 01/30/23 HPI Narrative HPI Narrative: STACIA CRAIN, is a 42 M who presented to the emergency room on 01/28/2023 palpitations. He was noted to be in atrial flutter with RVR and started on a Cardizem drip. Patient had noted a sudden onset of palpitations in which she felt lightheaded and then he presented to the emergency room. He does have a history of paroxysmal atrial fibrillation in which she has undergone previous cardioversions. Echocardiogram done yesterday demonstrates an ejection fraction of 60%. This was similar to echocardiogram done in 2020. Patient was last seen in our office in 2019, this was following a new onset of atrial fibrillation. That was when he did undergo a cardioversion. There was some concern that in the past he has had a nonischemic cardiomyopathy. The lowest ejection fraction I could find was 50% in 2018. At his last appointment in 2019 it was discussed to use a pill in the pocket with flecainide if he had any recurrence of his atrial fibrillation. He did use this prior to presenting to the emergency room and this did not help. Patient states that prior to this past weekend he has not had any recurrence of his atrial fibrillation that he is aware of. He however does admit to not being compliant with his CPAP. [facility] Medical History Alcohol abuse Cardiomyopathy Essential hypertension Obesity (BMI 35.0-39.9 without comorbidity) Paroxysmal atrial fibrillation Tobacco abuse Home Medications lisinopril 5 mg tablet 5 mg PO DAILY #90 tabs 04/27/22 [Rx Last Taken Unknown] metoprolol succinate 25 mg tablet,extended release 24 hr 25 mg PO DAILY #90 tabs 04/27/22 [Rx Last Taken Unknown] aspirin 81 mg tablet,delayed release 81 mg PO DAILY #90 tabs 06/05/22 [Rx Last Taken Unknown] Allergy/AdvReac Type Severity Reaction Status Date / Time No Known Allergies Allergy Verified 01/28/23 13:50 Family History Other No pertinent family history Family History no significant family his Surgical History No pertinent past surgical history Social History Smoking Status: Former smoker Smokeless tobacco user: chewing tobacco alcohol intake: current details: 8-10 beers 3-4 days per week substance use type: does not use ROS ROS Narrative GENERAL: denies fever, chills, night sweats, weight loss, anorexia HEENT: denies headache, sinus congestion, or drainage, dysphagia RESPIRATORY: denies cough, sputum production, shortness of breath, dyspnea on exertion CARDIAC: palpitations and lightheaded GASTROINTESTINAL: denies abdominal pain, nausea, vomiting, melena, GENITOURINARY: denies dysuria, urgency, frequency, heamaturia EXTREMITY: denies swelling MUSCULOSKELETAL: denies current joint pain or tenderness NEUROLOGIC: denies focal numbness, weakness, tingling HEMATOLOGIC: denies easy bruising and/or hemorrhage INTEGUMENT: denies rashes PSYCHIATRIC: denies suicidal or homicidal ideation Physical Exam Const alert, oriented x3, no apparent distress and healthy appearing HEENT normocephalic, head/scalp atraumatic, hearing grossly normal bilaterally, external ears normal, external nose normal and moist oral mucous membranes Eyes PERRL, EOMs intact bilaterally, conjunctivae normal and no scleral icterus Neck no lymphadenopathy, supple and no JVD Cardio regular rate, regular rhythm, S1 normal heart sound, S2 normal heart sound, no murmurs, no rub, no gallops, no clicks, no JVD and peripheral pulses 2+ throughout GI normal to inspection, nondistended, normoactive bowel sounds, soft to palpation, non-tender and non-distended Extremity normal to inspection, normal capillary refill, no clubbing, cyanosis or edema and no pedal edema Neuro oriented x3, CN's II-XII intact bilaterally, moves all extremities and no focal motor deficits Psych cooperative and affect normal Risk Stratification Risk Stratification Applicable: No Charges/Coding Visit Charges Office Visits / Consults: [id number] IP Consult L3 Objective Data Vital Signs: Vital Signs Temp Pulse Resp BP Pulse Ox O2 Del Method 97.5 F L 62 15 118/73 97 Room Air 01/30/23 03:45 01/30/23 11:01 01/30/23 11:00 01/30/23 11:00 01/30/23 11:00 01/30/23 09:08 Oxygen Delivery Method Room Air Weight: 264 lb 12.403 oz Body Mass Index (BMI) 34.0 Intake & Output: Intake and Output for Last 24 Hours 01/28/23 01/29/23 01/30/23 23:59 23:59 23:59 Intake Total 1064.01 / 1326.51 1195.00 / 1205.00 82.92 / 82.92 Output Total 0 / 0 Balance 1064.01 / 1326.51 1195.00 / 1205.00 82.92 / 82.92 Lab / Micro Data 01/30/23 06:01 01/30/23 06:01 Labs: Laboratory Results - last 24 hr 01/29/23 04:30: Phosphorus 3.9, Magnesium 2.2 01/30/23 06:01: WBC 7.7, RBC 5.10, Hgb 15.6, Hct 45.9, MCV 90.0, MCH 30.6, MCHC 34.0, RDW Std Deviation 41.9, RDW Coeff of Corinne 12.7, Plt Count 182, MPV 9.1, Immature Gran % (Auto) 0.500, Neut % (Auto) 56.8, Lymph % (Auto) 33.3, [place] % (Auto) 6.7, Eos % (Auto) 2.3, Baso % (Auto) 0.4, Absolute Neuts (auto) 4.4, Absolute Lymphs (auto) 2.57, Nucleated RBC % 0, Sodium 139, Potassium 4.1, Chloride 108 H, Carbon Dioxide 28.0, Anion Gap 3 L, BUN 16, Creatinine 0.99, Estim Creat Clear Calc 114.17, Est GFR (MDRD) Af Amer 107, Est GFR (MDRD) Non-Af 88, BUN/Creatinine Ratio 16.1, Glucose 100, Calcium 8.9 Cardiology Labs/Tests 01/29/23 04:30: Phosphorus 3.9, Magnesium 2.2 01/30/23 06:01: WBC 7.7, RBC 5.10, Hgb 15.6, Hct 45.9, MCV 90.0, MCH 30.6, MCHC 34.0, Plt Count 182, MPV 9.1, Immature Gran % (Auto) 0.500, Neut % (Auto) 56.8, Lymph % (Auto) 33.3, [place] % (Auto) 6.7, Eos % (Auto) 2.3, Baso % (Auto) 0.4, Absolute Neuts (auto) 4.4, Nucleated RBC % 0, Sodium 139, Potassium 4.1, Chloride 108 H, Carbon Dioxide 28.0, Anion Gap 3 L, BUN 16, Creatinine 0.99, Est GFR (MDRD) Af Amer 107, Est GFR (MDRD) Non-Af 88, BUN/Creatinine Ratio 16.1, Glucose 100, Calcium 8.9 Rhythm: Normal sinus rhythm
--- NOTE | 2023-01-30 13:56 | PCM.DC ---
Discharge Instructions Diet Discharge Diet: - (DASH diet) Activity Discharge Activity: Return to Normal Activity Follow Up Care Test Results: Test results from this visit will be discussed in further detail at your follow-up appointment, if applicable. Discharge Plan Admission Admit Date/Time: 01/28/23 15:46 Primary Reason for Your Visit: Atrial fibrillation Attending Provider: Karis Truong Primary Care Provider: Russell Perkins Consulting Providers: Jose Martin Lopez; Sarah Motley Instructions Patient Instructions: AFib Dc Additional Instructions / Restrictions: DISCHARGE INSTRUCTIONS PLEASE READ *Please take this with you to your next doctors appointment* -Your metoprolol has been increased to 75 mg daily, new prescription was sent to your preferred pharmacy on file -It is advised that you hold your lisinopril as your blood pressure was running low with the adjustments in your medicine for atrial fibrillation. Please discuss with your prescribing physician on optimal timing for resuming this medication if needed -Please resume your Eliquis, please call the [facility] if you are running low for alternative anticoagulation plans -It is important that you resume using your CPAP -You will need to follow-up with cardiology upon discharge, if you do not hear from the office within 24 to 48 hours with your scheduled time please call the office to inquire about your follow-up appointment (ph [phone]) -Please call your primary care provider's office upon discharge to schedule a hospital follow up within 1 week. -For any concerning signs or symptoms please call 911 or proceed to the nearest emergency department Discharge Orders/Prescriptions Prescriptions: New metoprolol succinate 50 mg Tablet Extended Release 24 Hr 75 mg PO DAILY 30 Days Qty: 45 0RF Eliquis 5 mg Tablet 5 mg PO BID Qty: 0 0RF Continued aspirin 81 mg tablet,delayed release (DR/EC) 81 mg PO DAILY Qty: 90 3RF Held lisinopril 5 mg tablet 5 mg PO DAILY Qty: 90 3RF Hold Instructions: Resume on 02/06/23. Discontinued metoprolol succinate 25 mg tablet extended release 24 hr 25 mg PO DAILY Qty: 90 3RF Referrals / Follow Up: Russell Perkins MD [Primary Care Provider] - Within 1 Week Sarah Motley MD [Med Staff - Active Staff] - Care Physician,No Primary [Non-Staff] - Disposition Disposition (needs filled in before D/C Order can be placed): Home, Self Care
--- NOTE | 2023-01-30 14:00 | DS.PCM_ITS ---
Providers Date of Admission: 01/28/23 Date of Discharge: 01/30/23 Primary Care Physician: Dr. Russell Perkins MD Consultations 01/30/23 09:41 Consult: Cardiology Routine Consulting Provider: Sarah Motley Reason for Consult: back in afib rvr, symptomatic when in afib, hx cardioversions, NSVT EMERGENT Consult: No MD Notified: Yes Date Notified: 01/30/23 Time Notified: 10:34 Method of Notification: Text Reason For Visit: AFIB WITH RVR Diagnosis Discharge Diagnosis (1) Atrial fibrillation with RVR: Status: Acute Code(s): I48.91 - Unspecified atrial fibrillation (2) Essential hypertension: Status: Chronic Code(s): I10 - Essential (primary) hypertension (3) RUDY (obstructive sleep apnea): Status: Chronic Code(s): G47.33 - Obstructive sleep apnea (adult) (pediatric) Plan #afib w/ rvr-converted #hypertension #Obstructive sleep apnea # Class I obesity with BMI of 34 Medications at Discharge Home Medications lisinopril 5 mg tablet 5 mg PO DAILY #90 tabs 04/27/22 aspirin 81 mg tablet,delayed release 81 mg PO DAILY #90 tabs 06/05/22 apixaban 5 mg tablet (Eliquis) 5 mg PO BID #0 tabs 01/30/23 metoprolol succinate 50 mg tablet,extended release 24 hr 75 mg (1.5 x 50 mg) PO DAILY 30 days #45 tabs 01/30/23 Hospital Course Procedures Transthoracic echo Summary of Care Provided Minutes Spent on Discharge: 31 Hospital Course: 42-year-old male with history of hypertension, obesity, paroxysmal atrial fibrillation, RUDY presented to [facility] 01/28/2023 with palpitations and was found to be in A-fib with RVR and was started on Cardizem drip and admitted for management. He has history of A-fib with cardioversions and had been in normal sinus rhythm prior. At home he was supposed to be taking Eliquis however due to cost he did stop taking this independently and also reports he is supposed to use a CPAP but has not been compliant with this. He had echocardiogram which showed EF of 60% and unable to assess diastolic dysfunction. He was on Cardizem drip with up titration of metoprolol and eventually converted and was taken off the Cardizem drip. Cardiology evaluated and felt it was reasonable to DC home on increased dose of metoprolol with foll ow-up in the office. He did report he had a bottle of Eliquis at home and was open to resuming this and would call the cardiology office for alternative anticoagulation plans moving forward if unable to afford Eliquis and he may be switched to another agent. On the day of discharge once he converted he had no further complaints. Patient felt well and wanted to go home. Discharge instructions as follows: -Your metoprolol has been increased to 75 mg daily, new prescription was sent to your preferred pharmacy on file -It is advised that you hold your lisinopril as your blood pressure was running low with the adjustments in your medicine for atrial fibrillation. Please discuss with your prescribing physician on optimal timing for resuming this medication if needed -Please resume your Eliquis, please call the [facility] if you are running low for alternative anticoagulation plans -It is important that you resume using your CPAP -You will need to follow-up with cardiology upon discharge, if you do not hear from the office within 24 to 48 hours with your scheduled time please call the office to inquire about your follow-up appointment ( [phone]) -Please call your primary care provider's office upon discharge to schedule a hospital follow up within 1 week. -For any concerning signs or symptoms please call 911 or proceed to the nearest emergency department Physical Exam Narrative General: Alert, oriented, no apparent distress HEENT: Atraumatic, normocephalic Eyes: Anicteric, normal conjunctiva, extraocular movements grossly intact Neck: Supple Respiratory: Clear to auscultation bilaterally, normal respiratory effort Cardiovascular: Regular rate and rhythm GI: Soft, nontender, nondistended Extremities: No edema Musculoskeletal: Moving all extremities Neuro: No overt focal neurological deficits Skin: No rashes appreciated Psych: Cooperative Weight / BMI Weight Weight: 120.1 kg Body Mass Index (BMI) 34.0 ABG / Lab / Microbiology Data 01/30/23 06:01 01/30/23 06:01 Laboratory: Laboratory Results - last 24 hr 01/29/23 04:30: Phosphorus 3.9, Magnesium 2.2 01/30/23 06:01: WBC 7.7, RBC 5.10, Hgb 15.6, Hct 45.9, MCV 90.0, MCH 30.6, MCHC 34.0, RDW Std Deviation 41.9, RDW Coeff of Corinne 12.7, Plt Count 182, MPV 9.1, Immature Gran % (Auto) 0.500, Neut % (Auto) 56.8, Lymph % (Auto) 33.3, [place] % (Auto) 6.7, Eos % (Auto) 2.3, Baso % (Auto) 0.4, Absolute Neuts (auto) 4.4, Absolute Lymphs (auto) 2.57, Nucleated RBC % 0, Sodium 139, Potassium 4.1, Chloride 108 H, Carbon Dioxide 28.0, Anion Gap 3 L, BUN 16, Creatinine 0.99, Estim Creat Clear Calc 114.17, Est GFR (MDRD) Af Amer 107, Est GFR (MDRD) Non-Af 88, BUN/Creatinine Ratio 16.1, Glucose 100, Calcium 8.9 D/C Instructions Discharge Diet: - (DASH diet) Meaningful Use Info Meaningful Use Diagnoses (Choose all that apply): None applicable Discharge Plan Admission Admit Date/Time: 01/28/23 15:46 Primary Reason for Your Visit: Atrial fibrillation Attending Provider: Karis Truong Primary Care Provider: Russell Perkins Consulting Providers: Jose Martin Lopez; Sarah Motley Instructions Patient Instructions: AFib Dc Additional Instructions / Restrictions: DISCHARGE INSTRUCTIONS PLEASE READ *Please take this with you to your next doctors appointment* -Your metoprolol has been increased to 75 mg daily, new prescription was sent to your preferred pharmacy on file -It is advised that you hold your lisinopril as your blood pressure was running low with the adjustments in your medicine for atrial fibrillation. Please d iscuss with your prescribing physician on optimal timing for resuming this medication if needed -Please resume your Eliquis, please call the [place] if you are running low for alternative anticoagulation plans -It is important that you resume using your CPAP -You will need to follow-up with cardiology upon discharge, if you do not hear from the office within 24 to 48 hours with your scheduled time please call the office to inquire about your follow-up appointment ( [phone]) -Please call your primary care provider's office upon discharge to schedule a hospital follow up within 1 week. -For any concerning signs or symptoms please call 911 or proceed to the nearest emergency department Discharge Orders/Prescriptions Prescriptions: New metoprolol succinate 50 mg Tablet Extended Release 24 Hr 75 mg PO DAILY 30 Days Qty: 45 0RF Eliquis 5 mg Tablet 5 mg PO BID Qty: 0 0RF Continued aspirin 81 mg tablet,delayed release (DR/EC) 81 mg PO DAILY Qty: 90 3RF Held lisinopril 5 mg tablet 5 mg PO DAILY Qty: 90 3RF Hold Instructions: Resume on 02/06/23. Discontinued metoprolol succinate 25 mg tablet extended release 24 hr 25 mg PO DAILY Qty: 90 3RF Referrals / Follow Up: Russell Perkins MD [Primary Care Provider] - Within 1 Week ToluSarah cruz MD [Med Staff - Active Staff] - Care Physician,No Primary [Non-Staff] - Disposition Disposition (needs filled in before D/C Order can be placed): Home, Self Care Charges/Coding Visit Charges Inpatient E&M: 33236 Disch Hosp >30min
--- NOTE | 2023-01-30 14:38 | PHA.DC.MR.R ---
Pharmacy [place] Med Reconciliation Pharmacy Service has performed discharge medication reconciliation for this patient. Per discharge summary, patient has a bottle of Eliquis at home. The patient's discharge medication list was reviewed for discrepancies and discrepancies were resolved. Medications at Discharge Home Medications lisinopril 5 mg tablet 5 mg PO DAILY #90 tabs 04/27/22 aspirin 81 mg tablet,delayed release 81 mg PO DAILY #90 tabs 06/05/22 apixaban 5 mg tablet (Eliquis) 5 mg PO BID #0 tabs 01/30/23 metoprolol succinate 50 mg tablet,extended release 24 hr 75 mg (1.5 x 50 mg) PO DAILY 30 days #45 tabs 01/30/23
== END 2023-01-30 14:30 | disposition home or self-care (01) | DRG 310 ==
LOC: ED 15:50 → PCU 16:01
PROVIDERS: Admitting Provider Internal Medicine; Emergency Provider Emergency Medicine; PCP Family Medicine; Visit Provider Internal Medicine
DX: I48.0 Paroxysmal atrial fibrillation (principal); E66.9 Obesity, unspecified; I10 Essential (primary) hypertension; G47.33 Obstructive sleep apnea (adult) (pediatric); F17.220 Nicotine dependence, chewing tobacco, uncomplicated; Z68.34 Body mass index [BMI] 34.0-34.9, adult; Z91.148 Patient's other noncompliance with medication regimen for other reason; T45.516A Underdosing of anticoagulants, initial encounter; Z91.199 Patient's noncompliance with other medical treatment and regimen due to unspecified reason; Z79.82 Long term (current) use of aspirin; Z79.899 Other long term (current) drug therapy
CPT/HCPCS: 36415; 71045; 80048; 80053; 83735; 84100; 84443; 84484; 85025; 93005; 93306; 99285; J7030; A4216